=== PATIENT | male | born 1940 | race Caucasian/White ===

== ENCOUNTER → 2018-09-19 | Outpatient (REF) | payer OTHER ==
[2018-09-19 13:59] LABS: APPEARANCE, URINE CLEAR (CLEAR); BACTERIA, URINE AUTO NEGATIVE (NEGATIVE); BILIRUBIN, URINE AUTO NEGATIVE (NEGATIVE); BLOOD, URINE BLOOD NEGATIVE (NEGATIVE); CALCIUM OXALATE CRYSTALS MODERATE; COLOR, URINE YELLOW (YELLOW); GLUCOSE, URINE (UA) AUTO NEGATIVE (NEGATIVE); KETONE, URINE AUTO NEGATIVE (NEGATIVE); LEUKOCYTE ESTERASE, URINE AUTO NEGATIVE (NEGATIVE); NITRITE, URINE AUTO NEGATIVE (NEGATIVE); PROTEIN, URINE AUTO NEGATIVE (NEGATIVE); RBC, URINE AUTO 3 /HPF (0-3); SPECIFIC GRAVITY URINE AUTO 1.016 (1.002-1.035); SQUAMOUS EPITHELIAL CELL UR AU 0 /HPF (0-6); WBC, URINE AUTO 6 /HPF (0-3)
== END ==
LOC: M SMT 13:19
DX: N40.1 Benign prostatic hyperplasia with lower urinary tract symptoms (principal)
CPT/HCPCS: 81001

== ENCOUNTER → 2018-10-29 | Outpatient (CLI) | payer OTHER ==
--- NOTE | 2018-10-29 11:46 | REP ---
Clinical: Incomplete bladder emptying. Technique: Single supine view of the abdomen and pelvis. Findings: Bowel gas pattern is nonspecific but fecal stasis and constipation cannot be excluded. Intrarenal calculi identified. The patient is status post cholecystectomy. Skeletal structures demonstrate degenerative changes. Impression: Fecal stasis and constipation. Bilateral nephroliths. Electronically Signed by Seb Dubon MD 10/29/2018 11:37 A
== END ==
LOC: M SMT 11:17
PROVIDERS: ATTEND Urology Pediatric Urology
DX: K59.8 Other specified functional intestinal disorders (principal); K59.00 Constipation, unspecified; N20.0 Calculus of kidney; R39.14 Feeling of incomplete bladder emptying
CPT/HCPCS: 74018; G0463

== ENCOUNTER → 2018-12-11 | Outpatient (CLI) | payer MEDICARE ==
--- NOTE | 2018-12-11 11:33 | REP ---
RENAL AND BLADDER ULTRASOUND: Real-time sonographic evaluation of the kidneys performed and demonstrates both kidneys to be normal in size and echotexture, right kidney measuring 10.1 x 6.5 x 5.2 cm and left kidney 11.9 x 4.4 x 5.7 cm. There is no hydronephrosis bilaterally. There are two cysts in the upper right kidney, 1.7 cm and 1.3 cm in maximum diameter. I suspect a 5 mm calculus in the right lower pole. On the left, there appear to be several calculi, one in the upper pole 8 mm and two in the lower pole 6 mm in diameter. The prostate is enlarged measuring 7.6 x 5.5 x 6.4 cm. Urinary bladder is mildly distended with no gross mass or calculus. It measures 6.5 x 6.3 x 5.0 cm for a total volume of 134 mL. Post void residual is 126 mL which is 94%. There are bilateral ureteral jets in the urinary bladder with Doppler color evaluation. IMPRESSION: No hydronephrosis. Bilateral renal calculi. Two cysts are seen in the upper pole of the right kidney. Enlarged prostate. Significant post void residual in the urinary bladder. Electronically Signed by Daniel Rm MD 12/11/2018 05:22 P
== END ==
LOC: M RAD 09:50
PROVIDERS: ATTEND Urology Pediatric Urology
DX: N39.43 Post-void dribbling (principal); N20.0 Calculus of kidney; N28.1 Cyst of kidney, acquired; N40.1 Benign prostatic hyperplasia with lower urinary tract symptoms; R39.14 Feeling of incomplete bladder emptying

== ENCOUNTER → 2019-07-24 | Outpatient (CLI) | payer MEDICARE ==
--- NOTE | 2019-07-25 05:26 | REP ---
Clinical: Nephrolithiasis. Technique: Axial noncontrast images from the lung bases to the pubic symphysis with coronal and sagittal re-formations. Comparison: None. Findings: 4 mm hepatic hypodensity approaching the dome likely represent small cysts. Evidence of prior cholecystectomy. Spleen, pancreas, and bilateral adrenal glands are normal. Kidneys demonstrate multiple nonobstructing intrarenal calculi measuring up to approximately 2.5 mm in the right kidney and 4 mm in the left kidney along with hypodensities which may reflect small renal cysts. Mild chronic bilateral perinephric stranding is also appreciated without evidence for hydronephrosis or obstructing ureteral calculi. The bladder is grossly unremarkable. The prostate gland is enlarged and measures approximately 6.3 cm maximal diameter. No ascites. No free air. Atherosclerotic changes to the aorta without aneurysm. Musculoskeletal structures demonstrate age-related changes without focal osseous abnormality. Lung bases demonstrate chronic interstitial changes. Impression: 1. Bilateral nephrolithiasis and possible renovascular calcifications without hydronephrosis. 2. Enlarged prostate gland measuring 6.3 cm diameter. 3. Single hepatic and bilateral renal hypodensities likely representing cysts which cannot be further characterized based on current examination. Consider ultrasound evaluation if necessary. Electronically Signed by Seb Dubon MD 07/25/2019 05:18 A
== END ==
LOC: M RAD 13:24
PROVIDERS: ATTEND Nurse Practitioner Family
DX: N20.0 Calculus of kidney (principal); N40.0 Benign prostatic hyperplasia without lower urinary tract symptoms; K76.89 Other specified diseases of liver; N28.89 Other specified disorders of kidney and ureter; I70.0 Atherosclerosis of aorta

== ENCOUNTER → 2020-07-28 | Outpatient (CLI) | payer MEDICARE ==
--- NOTE | 2020-08-04 14:14 | REPPI ---
KUB: SINGLE VIEW HISTORY: Kidney stones. COMPARISON: CT study 07/24/2019. FINDINGS: There are clips in the right upper quadrant. Bowel gas pattern shows moderate stool. There are multiple calcifications projecting over the kidneys bilaterally consistent with multiple intrarenal nephrolithiasis. Similar pattern was observed on CT. The calcifications measure up to 6 mm in size. No bladder calculus is appreciated. Psoas margins are symmetric. IMPRESSION: * Multiple bilateral intrarenal nephrolithiasis. * Moderate colonic stool. * Clips in the right upper quadrant. MTDD
== END ==
LOC: M PLAIMG 11:24
PROVIDERS: ATTEND Nurse Practitioner Family
DX: N20.0 Calculus of kidney (principal)
CPT/HCPCS: 51798; 74018; G0463

== ENCOUNTER → 2020-08-18 | Outpatient (CLI) | payer MEDICARE ==
--- NOTE | 2020-08-18 14:43 | REP ---
INDICATION: BILATERAL KIDNEY STONES. COMPARISON: 07/24/2019 TECHNIQUE: Noncontrast helical CT scanning of the abdomen and pelvis FINDINGS: The lung bases are clear and unchanged. The liver, spleen, pancreas, adrenal glands, and kidneys are unchanged. Note is again made of a small hepatic cyst and a small right renal cyst. There is bilateral nephrolithiasis status quo. There is no obstructive phenomena. Limited evaluation of the abdominal aorta and para-aortic regions show no gross abnormalities or significant changes from the prior exam. There is no free fluid or free air. There is extensive descending colon and sigmoid colon diverticulosis. 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 Bone window technique throughout the examination shows the osseous structures to be stable and intact. Spinal, hip, and sacroiliac joint degenerative changes are noted status quo IMPRESSION: 1. Bilateral nephrolithiasis without obstructive phenomena unchanged. 2. Prostatomegaly and corpora amylacea unchanged. 3. Hepatic and right renal cyst unchanged. 4. No evidence of acute intra-abdominal or intrapelvic disease. <Electronically signed by Michael Santiago > 08/18/20 [id number]
== END ==
LOC: M RAD 14:02
PROVIDERS: ATTEND Nurse Practitioner Family
DX: N20.0 Calculus of kidney (principal); N28.1 Cyst of kidney, acquired; N40.0 Benign prostatic hyperplasia without lower urinary tract symptoms

== ENCOUNTER → 2021-02-19 | Outpatient (REF) | payer MEDICARE ==
[2021-02-19 14:07] LABS: APPEARANCE, URINE CLEAR (CLEAR); BACTERIA, URINE AUTO NEGATIVE (NEGATIVE); BILIRUBIN, URINE AUTO NEGATIVE (NEGATIVE); BLOOD, URINE BLOOD NEGATIVE (NEGATIVE); CALCIUM OXALATE CRYSTALS SMALL; COLOR, URINE YELLOW (YELLOW); GLUCOSE, URINE (UA) AUTO NEGATIVE (NEGATIVE); KETONE, URINE AUTO NEGATIVE (NEGATIVE); LEUKOCYTE ESTERASE, URINE AUTO NEGATIVE (NEGATIVE); MUCUS, URINE SMALL (NEGATIVE); NITRITE, URINE AUTO NEGATIVE (NEGATIVE); PROTEIN, URINE AUTO NEGATIVE (NEGATIVE); RBC, URINE AUTO 4 /HPF (0-3); SPECIFIC GRAVITY URINE AUTO 1.014 (1.002-1.035); SQUAMOUS EPITHELIAL CELL UR AU 0 /HPF (0-6); WBC, URINE AUTO 5 /HPF (0-3)
== END ==
LOC: M SMT 13:34
PROVIDERS: ATTEND Nurse Practitioner Family
DX: R30.0 Dysuria (principal)

== ENCOUNTER → 2021-04-16 | Outpatient (CLI) | payer MEDICARE ==
[~2021-04-16] MED LIST: AMAN100T PO; AMBI10TA PO; ASPI325T54 PO; BACL10TA2 PO; FLOM0.4C39 PO; GABA-282 PO; GLAT40IN SC; METO1TAB32 PO; METO1TAB7 PO; SIMV40TA20 PO
== END ==
LOC: M LABSMTC 09:43
PROVIDERS: ATTEND Anesthesiology
DX: Z01.812 Encounter for preprocedural laboratory examination (principal); Z20.822 Contact with and (suspected) exposure to COVID-19

== ENCOUNTER 2021-04-21 08:39 | Day surgery (SDC) | payer MEDICARE ==
[~2021-04-21] VITALS: Ht 170.2 cm; Wt 80.9 kg
[~2021-04-21 08:39] MED LIST changes: +LIDOCAINE 1% MDV 20ML VIAL SQ PRN; +LR 1,000 ML IV ONE; +ceFAZolin SOD 2 GM in IV 1 EA IV ONE
[2021-04-21] MEDS ORDERED: fentaNYL 100 MCG/2 ML INJECTION (J3010) As Ordered ONE ×2 (09:41→12:50)
[2021-04-21] MEDS ORDERED: ONDANSETRON 4MG/2ML VIAL As Ordered ONE ×2 (09:41→12:52)
[2021-04-21] MEDS ORDERED: LIDOCAINE 2% 100MG/5ML SDV (FOR ANES.) As Ordered ONE ×2 (09:41→12:52)
[2021-04-21] MEDS ORDERED: propofoL 200 MG/20 ML VIAL As Ordered ONE ×2 (09:41→12:52)
[2021-04-21] MEDS ORDERED: CONRAY-60 60% 50ML VIAL (Q9961) As Ordered ONE (10:58)
[2021-04-21] MEDS ORDERED: hydrALAZINE 20MG/ML 1ML VIAL (J0360 PER 20MG) As Ordered ONE (13:25)
[2021-04-21] MEDS: hydrALAZINE 20MG/ML 1ML VIAL (J0360 PER 20MG) IV PRN ×3 (13:30→13:50)
[2021-04-21] MEDS ORDERED: oxyCODONE 5MG TAB PO PRN (13:45)
[2021-04-21] MEDS ORDERED: fentaNYL 100 MCG/2 ML INJECTION (J3010) IV PRN (13:45)
[2021-04-21] MEDS ORDERED: LR 1,000 ML IV SCH (13:45)
[2021-04-21] MEDS ORDERED: ONDANSETRON 4MG/2ML VIAL IV PRN (13:45)
[2021-04-21 13:50] VITALS: BP 179/102
[2021-04-21] MEDS ORDERED: ACETAMINOPHEN TAB 650MG DOSE (2X325MG) PO PRN (14:05)
[2021-04-21 14:30] VITALS: BP 151/86
--- NOTE | 2021-04-21 16:21 | RO ---
OPERATIVE NOTE DATE OF OPERATION: 04/21/2021 PREOPERATIVE DIAGNOSIS: Bladder stones. POSTOPERATIVE DIAGNOSIS: Bladder stones. PROCEDURE: Cystoscopy, removal of bladder stones. SURGEON: Dr. Amos Woodson WILDLIFE REMOVAL SPECIALIST: None. ANESTHESIA: General. OPERATIVE INDICATIONS: This is an 81-year-old male who was found to have two bladder stones on office cystoscopy with each one measuring around 1-1.5 cm in size. He was brought to the operating room today for treatment. DESCRIPTION OF PROCEDURE: The patient was brought to the operating room and general anesthesia induced. Prophylactic antibiotics were infused. He was placed in the dorsal lithotomy position and prepped and draped in the usual sterile fashion. At this point, a resectoscope was inserted into the urethral meatus and advanced to the bladder using a visual obturator. At this point, the bladder was examined, and only two stones were seen. Both stones were small enough where I was able to drain them out of the bladder through the scope. While doing this, it did cause a little bit of bleeding in the prostate. I then utilized the Bugbee to cauterize the prostate until there was good hemostasis. Once satisfied with hemostasis, the bladder was emptied of all fluids, and this marked the conclusion of the procedure. Patient was then taken out of the dorsal lithotomy position, awakened form anesthesia, and transported to the recovery room in stable condition. ESTIMATED BLOOD LOSS: 10 mL. COMPLICATIONS: None. SPECIMENS: Bladder stones. PLAN: The patient will followup in urology clinic in a few weeks for a postoperative visit.
[2021-05-01 09:10] LABS: CA Hydro Phos 40 % (.); CA Oxalate Dihy 50 % (.); Ca Ox Monohydrate 10 % (.); Size 7x8 mm (.)
== END 2021-04-21 14:39 | disposition home or self-care (01) ==
LOC: M SDC 08:39
PROVIDERS: ATTEND Urology
DX: N21.0 Calculus in bladder (principal); N99.71 Accidental puncture and laceration of a genitourinary system organ or structure during a genitourinary system procedure; I10 Essential (primary) hypertension; E78.00 Pure hypercholesterolemia, unspecified; K21.9 Gastro-esophageal reflux disease without esophagitis; G35 Multiple sclerosis; N40.0 Benign prostatic hyperplasia without lower urinary tract symptoms; R73.01 Impaired fasting glucose; Z92.3 Personal history of irradiation; Z87.442 Personal history of urinary calculi; Z85.828 Personal history of other malignant neoplasm of skin; Z88.8 Allergy status to other drugs, medicaments and biological substances; Z79.899 Other long term (current) drug therapy; Z79.82 Long term (current) use of aspirin
CPT/HCPCS: 52310; 82365; 88300; J0360; J0690; J2405; J3010

== ENCOUNTER 2021-09-30 14:10 | Emergency (ER) | payer MEDICARE ==
[~2021-09-30] VITALS: Ht 170.2 cm; Wt 81.5 kg
[~2021-09-30 14:10] MED LIST changes: -LIDOCAINE 1% MDV 20ML VIAL SQ PRN; -LR 1,000 ML IV ONE; -ceFAZolin SOD 2 GM in IV 1 EA IV ONE
[2021-09-30 14:11] VITALS: BP 176/89
--- OUTSIDE RECORDS SUMMARY | 2021-09-30 14:17 | CCD ---
Author Author [facility] Organization [facility] Address Unknown Phone Unavailable Care Team Providers Care Nursing Instructor Name Role Phone Dante Medina MD Unavailable Unavailable CarolDante lopez MD Unavailable Unavailable CarolDante lopez MD Unavailable Unavailable CarolDante lopez MD Unavailable Unavailable CarolDante lopez MD Unavailable Unavailable CarolDante lopez MD Unavailable Unavailable CarolDante lopez MD Unavailable Unavailable CarolDante lopez MD Unavailable Unavailable CarolDante lopez MD Unavailable Unavailable CarolDante lopez MD Unavailable Unavailable CarolDante lopez MD Unavailable Unavailable CarolDante lopez MD Unavailable Unavailable CarolDante lopez MD Unavailable Unavailable CarolDante lopez MD Unavailable Unavailable CarolDante lopez MD Unavailable Unavailable CarolDante lopez MD Unavailable Unavailable CarolDante lopez MD Unavailable Unavailable CarolDante lopez MD Unavailable Unavailable CarolDante lopez MD Unavailable Unavailable CarolDante lopez MD Unavailable Unavailable CarolDante lopez MD Unavailable Unavailable CarolDante lopez MD Unavailable Unavailable CarolDante lopez MD Unavailable Unavailable CarolDante lopez MD Unavailable Unavailable CarolDante lopez MD Unavailable Unavailable CarolDante lopez MD Unavailable Unavailable Carol, R Jesús MD Unavailable Unavailable Carol, R Jesús MD Unavailable Unavailable Carol, R Jesús MD Unavailable Unavailable Carol, R Jesús MD Unavailable Unavailable Carol, R Jesús MD Unavailable Unavailable Carol, R Jesús MD Unavailable Unavailable Carol, R Jesús MD Unavailable Unavailable Carol, R Jesús MD Unavailable Unavailable Carol, R Jesús MD Unavailable Unavailable Carol, R Jesús MD Unavailable Unavailable Carol, R Jesús MD Unavailable Unavailable Carol, R Jesús MD Unavailable Unavailable Carol, R Jesús MD Unavailable Unavailable Carol, R Jesús MD Unavailable Unavailable Carol, R Jesús MD Unavailable Unavailable Carol, R Jesús MD Unavailable Unavailable Carol, R Jesús MD Unavailable Unavailable Carol, R Jesús MD Unavailable Unavailable Carol, R Jesús MD Unavailable Unavailable Carol, R Jesús MD Unavailable Unavailable Carol, R Jesús Unavailable Unavailable Carol, R Jesús MD Unavailable Unavailable Carol, R Jesús Unavailable Unavailable Carol, R Jesús MD Unavailable Unavailable Carol, R Jesús MD Unavailable Unavailable Carol, R Jesús MD Unavailable Unavailable Carol, R Jesús MD Unavailable Unavailable Carol, R Jesús MD Unavailable Unavailable Carol, R Jesús MD Unavailable Unavailable Carol, R Jesús MD Unavailable Unavailable Carol, R Jesús MD Unavailable Unavailable Carol, R Jesús MD Unavailable Unavailable Carol, R Jesús MD Unavailable Unavailable Carol, R Jesús MD Unavailable Unavailable Carol, R Jesús Unavailable Unavailable Carol, R Jesús MD Unavailable Unavailable Carol, R Jesús MD Unavailable Unavailable Carol, R Jesús MD Unavailable Unavailable Carol, R Jesús MD Unavailable Unavailable Carol, R Jesús MD Unavailable Unavailable Carol, R Jesús MD Unavailable Unavailable Carol, R Jesús Unavailable Unavailable Carol, R Jesús MD Unavailable Unavailable Carol, R Jesús MD Unavailable Unavailable Carol, R Jesús MD Unavailable Unavailable Carol, R Jesús MD Unavailable Unavailable Carol, R Jesús MD Unavailable Unavailable Carol, R Jesús MD Unavailable Unavailable Carol, R Jesús MD Unavailable Unavailable Carol, R Jesús MD Unavailable Unavailable Carol, R Jesús MD Unavailable Unavailable CaorlDante lopez MD Unavailable Unavailable CarolDante MD Unavailable Unavailable Hadian, Abel Unavailable Unavailable Hadian, Abel Unavailable Unavailable Hadian, Abel Unavailable Unavailable Hadian, Abel Unavailable Unavailable Hadian, Abel Unavailable Unavailable Hadian, Abel Unavailable Unavailable Hadian, Abel Unavailable Unavailable Hadian, Abel Unavailable Unavailable Hadian, Abel Unavailable Unavailable Hadian, Abel Unavailable Unavailable Hadian, Abel Unavailable Unavailable Hadian, Abel Unavailable Unavailable Hadian, Abel Unavailable Unavailable Hadian, Abel Unavailable Unavailable Hadian, Abel Unavailable Unavailable Hadian, Abel Unavailable Unavailable Hadian, Abel Unavailable Unavailable Hadian, Abel Unavailable Unavailable Hadian, Abel Unavailable Unavailable Hadian, Abel Unavailable Unavailable Hadian, Abel Unavailable Unavailable Hadian, Abel Unavailable Unavailable Hadian, Abel Unavailable Unavailable Hadian, Abel Unavailable Unavailable Hadian, Abel Unavailable Unavailable Hadian, Abel Unavailable Unavailable Hadian, Abel Unavailable Unavailable Hadian, Abel Unavailable Unavailable Hadian, Abel Unavailable Unavailable Hadian, Abel Unavailable Unavailable Hadian, Abel Unavailable Unavailable Hadian, Abel Unavailable Unavailable Hadian, Abel Unavailable Unavailable Hadian, Abel Unavailable Unavailable Hadian, Abel Unavailable Unavailable Hadian, Abel Unavailable Unavailable Hadian, Abel Unavailable Unavailable Hadian, Abel Unavailable Unavailable Hadian, Abel Unavailable Unavailable Hadian, Abel Unavailable Unavailable Hadian, Abel Unavailable Unavailable Hadian, Abel Unavailable Unavailable Daniel Man MD Unavailable Unavailable Daniel Man MD Unavailable Unavailable Daniel Man MD Unavailable Unavailable Daniel Man MD Unavailable Unavailable Daniel Man MD Unavailable Unavailable Daniel Man MD Unavailable Unavailable Daniel Man MD Unavailable Unavailable Daniel Man MD Unavailable Unavailable Daniel Man MD Unavailable Unavailable Daniel Man MD Unavailable Unavailable Daniel Man MD Unavailable Unavailable Daniel Man MD Unavailable Unavailable Daniel aMn MD Unavailable Unavailable Daniel Man MD Unavailable Unavailable Laura GENTILE MD Unavailable Unavailable Laura GENTILE MD Unavailable Unavailable Laura GENTILE MD Unavailable Unavailable Laura GENTILE MD Unavailable Unavailable Laura GENTILE MD Unavailable Unavailable Laura GENTILE MD Unavailable Unavailable Laura GENTILE MD Unavailable Unavailable KRUPA, L AMOS MD Unavailable Unavailable KRUPA, L AMOS MD Unavailable Unavailable KRUPA, L AMOS MD Unavailable Unavailable KRUPA, L AMOS MD Unavailable Unavailable KRUPA, L AMOS MD Unavailable Unavailable KRUPA, L AMOS MD Unavailable Unavailable KRUPA, L AMOS MD Unavailable Unavailable KRUPA, L AMOS MD Unavailable Unavailable KRUPA, L AMOS MD Unavailable Unavailable KRUPA, L AMOS MD Unavailable Unavailable KRUPA, L AMOS MD Unavailable Unavailable KRUPA, L AMOS MD Unavailable Unavailable KRUPA, L AMOS MD Unavailable Unavailable KRUPA, L AMOS MD Unavailable Unavailable KRUPA, L AMOS MD Unavailable Unavailable KRUPA, L AMOS MD Unavailable Unavailable KRUPA, L AMOS MD Unavailable Unavailable KRUPA, L AMOS MD Unavailable Unavailable KRUPA, L AMOS MD Unavailable Unavailable KRUPA, L AMOS MD Unavailable Unavailable KRUPA, L AMOS MD Unavailable Unavailable KRUPA, L AMOS MD Unavailable Unavailable KRUPA, L AMOS MD Unavailable Unavailable KRUPA, L AMOS MD Unavailable Unavailable KRUPA, L AMOS MD Unavailable Unavailable KRUPA, L AMOS MD Unavailable Unavailable KRUPA, L AMOS MD Unavailable Unavailable KRUPA, L AMOS MD Unavailable Unavailable KRUPA, L AMOS MD Unavailable Unavailable KRUPA, L AMOS MD Unavailable Unavailable KRUPA, L AMOS MD Unavailable Unavailable KRUPA, L AMOS MD Unavailable Unavailable KRUPA, L AMOS MD Unavailable Unavailable KRUPA, L AMOS MD Unavailable Unavailable Re-disclosure Warning The records that you are about to access may contain information from federally-assisted alcohol or drug abuse programs. If such information is present, then the following federally mandated warning applies: This information has been disclosed to you from records protected by federal confidentiality rules (42 CFR part 2). The federal rules prohibit you from making any further disclosure of this information unless further disclosure is expressly permitted by the written consent of the person to whom it pertains or as otherwise permitted by 42 CFR part 2. A general authorization for the release of medical or other information is NOT sufficient for this purpose. The Federal rules restrict any use of the information to criminally investigate or prosecute any alcohol or drug abuse patient.The records that you are about to access may contain highly sensitive health information, the redisclosure of which is protected by Article 27-F of the [place] State Public Health law. If you continue you may have access to information: Regarding HIV / AIDS; Provided by facilities licensed or operated by the [facility] Office of Mental Health; or Provided by the [facility] Office for People With Developmental Disabilities. If such information is present, then the following [facility] mandated warning applies: This information has been disclosed to you from confidential records which are protected by state law. State law prohibits you from making any further disclosure of this information without the specific written consent of the person to whom it pertains, or as otherwise permitted by law. Any unauthorized further disclosure in violation of state law may result in a fine or fci sentence or both. A general authorization for the release of medical or other information is NOT sufficient authorization for further disc losure. Allergies and Adverse Reactions Type Description Substance Reaction Status Data Source(s ) Food allergy No Known Food Allergies No Known Food Allergies [facility] Drug allergy lisinopril Lisinopril cough MO [facility] Family History Family Member Name Family Member Gender Family Member Status Date o f Status Description Data Source(s) Unknown Condition [facility] Unknown Condition [facility] Unknown Condition [facility] Unknown Condition [facility] Unknown Condition [facility] Unknown Condition [facility] Unknown Condition [facility] Unknown Condition [facility] Unknown Condition [facility] Unknown Condition [facility] Unknown Condition [facility] Unknown Condition [facility] Unknown Condition [facility] Unknown Condition [facility] Unknown Condition [facility] Unknown Condition [facility] Unknown Condition [facility] Unknown Condition [facility] Unknown Unknown Problem [facility] ([employer]) Encounters Encounter Providers Location Date Indications Data Source(s ) Outpatient Attender: Jesús Medina MD 09/28/2021 01:43: 00 PM EST 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 Outpatient Attender: Jesús Medina MDReferrer: Jesús Medina MD 06/21/2021 10:09:00 AM EDT - 06/21/2021 11:15:00 AM EDT [facility] Outpatient Attender: Jesús Medina MD 06/16/2021 10:47:00 AM EDT [facility] Outpatient [address], [facility] [address] 05/05/2021 12:00:00 AM EDT [facility]CW1 [facility] Unknown [address] [address] 04/19/2021 12:00:00 AM EDT [facility]CW1 [facility]) Outpatient Attender: AMOS GENTILE MD 04/13/2021 11 :38:00 AM EDT N21.0,Z01.818,N39.0 [facility] N21.0,Z01.818,N39.0 Outpatient Attender: AMOS GENTILE MD 04/01/2021 11 :01:00 AM EDT N21.0,Z01.818 [facility] N21.0,Z01.818 Outpatient Attender: Jesús Medina MDReferrer: Jesús Medina MD 04/01/2021 09:58:00 AM EDT - 04/01/2021 10:52:00 AM EDT [facility] (Cyst[facility]) Urology [address] [place] [address] 03/15/2021 12:00:00 AM EDT eCW1 ([facility]) Unknown [address], [facility] [address] 02/22/2021 12:00:00 AM EDT eCW1 ([facility]) Outpatient [address] [facility] [address] 02/15/2021 12:00:00 AM EDT eCW1 ([facility]) [place] [address] [address] 01/18/2021 12:00:00 AM EDT eCW1 ([facility]) Outpatient Attender: Jesús Medina MDReferrer: Jesús Medina MD 11/30/2020 10:14:00 AM EST - 11/30/2020 10:54:00 AM EST [facility] Outpatient Attender: Channing Man MD 07:26:00 AM EST - 10/07/2020 11:40:00 AM EST R19.5/COLONOSCOPY [id number] [facility] l R19.5/COLONOSCOPY [id number] Patient discharged. Outpatient Attender: Channing Man MDReferrer: Jesús Median MD 10/02/2020 09:14:00 AM EST - 10/02/2020 09:28:00 AM EST [facility] Outpatient Attender: Jesús Medina MD 09/29/2020 10:53:00 AM EST I10,Z01.818 [facility] I10,Z01.818 Outpatient Attender: Jesús Medina MDReferrer: Jesús Medina MD 09/29/2020 10:12:00 AM EST - 09/29/2020 10:51:00 AM EST [facility] Outpatient Attender: Channing Man MDReferrer: Jesús Medina MD 09/02/2020 09:16:00 AM EST [facility] Outpatient [address] [address] 09/01/2020 12:00:00 AM EST eCW1 ([facility]) [place] [address] [address] 08/11/2020 12:00:00 AM EDT eCW1 ([facility]) [place] [address] [address] 08/05/2020 12:00:00 AM EDT eCW1 ([facility]) Immunizations Vaccine Date Status Description Data Source(s) COVID-19 Moderna 01/13/2021 12:00:00 AM EDT completed [facility] COVID-19 VACCINE Moderna 01/13/2021 12:00:00 AM EDT completed [facility] Vaccine Series Complete: YESThis Data wa s Submitted to [facility] Via [facility]. COVID-19 VACCINE, MRNA-1273, LNP-S (MODERNA)/PF 01/13/2021 1 2:00:00 AM EDT completed [facility] COVID-19 Moderna 12/12/2020 12:00:00 AM EST completed [facility] COVID-19 VACCINE Moderna 12/12/2020 12:00:00 AM EST completed [facility] Vaccine Series Complete: NOThis Data was Submitted to [facility] Via [employer]. COVID-19 VACCINE, MRNA-1273, LNP-S (MODERNA)/PF 12/12/2020 1 2:00:00 AM EST completed [facility] IIV3. This is one of two codes replacing CVX 15, which is being retired. 08/01/2020 12:00:00 AM EDT completed [facility] IIV3. This is one of two codes replacing CVX 15, which is being retired. 08/01/2020 12:00:00 AM EDT completed influenza vaccine, inactivated [facility] IIV3. This is one of two codes replacing CVX 15, which is being retired. 08/01/2020 12:00:00 AM EDT completed influenza vaccine, inactivated [facility] IIV3. This is one of two codes replacing CVX 15, which is being retired. 08/01/2020 12:00:00 AM EDT completed influenza vaccine, inactivated [facility] IIV3. This is one of two codes replacing CVX 15, which is being retired. 08/01/2020 12:00:00 AM EDT completed influenza vaccine, inactivated [facility] IIV3. This is one of two codes replacing CVX 15, which is being retired. 08/01/2020 12:00:00 AM EDT completed influenza vaccine, inactivated [facility] Medications Medication Brand Name Start Date Product Form Dose Route Admi nistrative Instructions Pharmacy Instructions Status Indications Reaction Description Data Source(s) doxycycline hyclate 100 MG Oral Capsule Doxycycline Hyclate Doxycycline Hyclate 05/04/2021 01:56:41 PM EDT 200 MG [facility] 24 HR metoprolol succinate 50 MG Extende d Release Oral Tablet Metoprolol Succinate Metoprolol Succinate 02/23/2021 11:44:34 AM EDT 75 MG [facility] Zolpidem tartrate 5 MG Oral Tablet Zolpidem 10/06/2020 08:37:23 AM ES T 5 MG [facility] Simvastatin 40 MG Oral Tablet Simvastatin (Zocor) 40 m g tablet Simvastatin (Zocor) 40 mg tablet 10/06/2020 08:37:23 AM EST 40 MG [facility] Simvastatin 40 MG Oral Tablet Simvastatin (Zocor) 40 m g tablet Simvastatin (Zocor) 40 mg tablet 10/06/2020 08:37:23 AM EST 40 MG [facility] Zolpidem tartrate 5 MG Oral Tablet Zolpidem 10/06/2020 08:37:23 AM ES T 5 MG [facility] 24 HR metoprolol succinate 50 MG Extende d Release Oral Tablet Metoprolol Succinate Metoprolol Succinate 10/06/2020 08:37:23 AM EST 75 MG [facility] 24 HR metoprolol succinate 50 MG Extende d Release Oral Tablet Metoprolol Succinate Metoprolol Succinate 10/06/2020 08:37:23 AM EST 75 MG [facility] Simvastatin 40 MG Oral Tablet Simvastatin (Zocor) 40 m g tablet Simvastatin (Zocor) 40 mg tablet 10/06/2020 08:37:23 AM EST 40 MG [facility] Zolpidem tartrate 5 MG Oral Tablet Zolpidem 10/06/2020 08:37:23 AM ES T 5 MG [facility] 24 HR metoprolol succinate 50 MG Extende d Release Oral Tablet Metoprolol Succinate Metoprolol Succinate 10/06/2020 08:37:23 AM EST 75 MG [facility] Simvastatin 40 MG Oral Tablet Simvastatin (Zocor) 40 m g tablet Simvastatin (Zocor) 40 mg tablet 06/22/2020 01:52:39 PM EDT 40 MG co [facility] Simvastatin 40 MG Oral Tablet Simvastatin (Zocor) 40 m g tablet Simvastatin (Zocor) 40 mg tablet 06/22/2020 01:52:39 PM EDT 40 MG co [facility] Simvastatin 40 MG Oral Tablet Simvastatin (Zocor) 40 m g tablet Simvastatin (Zocor) 40 mg tablet 06/22/2020 01:52:39 PM EDT 40 MG co mpleted [facility] 24 HR metoprolol succinate 50 MG Extende d Release Oral Tablet Metoprolol Succinate Metoprolol Succinate 06/22/2020 01:52:35 PM EDT 75 MG completed [facility] 24 HR metoprolol succinate 50 MG Extende d Release Oral Tablet Metoprolol Succinate Metoprolol Succinate 06/22/2020 01:52:35 PM EDT 75 MG completed [facility] 24 HR metoprolol succinate 50 MG Extende d Release Oral Tablet Metoprolol Succinate Metoprolol Succinate 06/22/2020 01:52:35 PM EDT 75 MG completed [facility] modafinil 100 MG Oral Tablet Modafinil Modafinil 05/18/2017 11:2 1:00 AM EDT 100 MG completed [facility] modafinil 100 MG Oral Tablet Modafinil Modafinil 05/18/2017 11:2 1:00 AM EDT 100 MG completed [facility] modafinil 100 MG Oral Tablet Modafinil Modafinil 05/18/2017 11:2 1:00 AM EDT 100 MG completed [facility] modafinil 100 MG Oral Tablet Modafinil Modafinil 05/18/2017 11:2 1:00 AM EDT 100 MG completed [facility] modafinil 100 MG Oral Tablet Modafinil Modafinil 05/18/2017 11:2 1:00 AM EDT 100 MG completed [facility] Zolpidem tartrate 5 MG Oral Tablet Zolpidem 06/11/2012 10:51:00 AM ED T 5 MG completed [facility] Zolpidem tartrate 5 MG Oral Tablet Zolpidem 06/11/2012 10:51:00 AM ED T 5 MG completed [facility] Zolpidem tartrate 5 MG Oral Tablet Zolpidem 06/11/2012 10:51:00 AM ED T 5 MG completed [facility] Insurance Providers Payer name Policy type / Coverage type Policy ID Covered libertarian ID Covered libertarian's relationship to callaway Policy [place] Plan Information MOTHER JOSSY UNAVAILABLE Patient UNAVAILABLE AMER PROG TODAYS OPTIONS G [id number] Self [id number] OTHER B [id number] Self [id number] [place]GR[place] [id number] Self [id number] AMER PROG TODAYS OPTIONS G [id number] Self [id number] OTHER B [id number] Self [id number] OTHER B [id number] Self [id number] OTHER B [id number] Self [id number] WELLCARE [id number] WELLCARE [id number] ANSI-Medicare Part B [id number] ANSI-Medicare Part B [id number] ANSI-Medicare Part B [id number] ANSI-Medicare Part B [id number] ANSI-Medicare Part B [id number] ANSI-Medicare Part B [id number] [employer] Options Ppo Commercial [id number] Self [id number] [employer] PFFS Commercial [id number] Self [id number] TODAYS OPTIONS MCR [id number] Patient [id number] [employer] PROG VACAA [id number] S [id number] NON VA CARE [id number] S [id number] NON VA CARE [id number] S [id number] TODAYS OPTIONS MCR [id number] Patient [id number] Todays Options Ppo Commercial [id number] Self NON VA CARE [id number] S [id number] TODAYS OPTIONS O [id number] S [id number] TODAYS OPTIONS O UNAVAILABLE S [place] VAILABLE MEDICARE M [id number] S [id number] WELLCARE [id number] S [id number] WELLCARE [id number] SP [id number] WELLCARE [id number] SP [id number] WELLCARE [id number] SP [id number] WELLCARE [id number] SP [id number] TODAYS OPTIONS [id number] SP [id number] VETERANS CHOICE PROG VACAA [id number] S [id number] FILIPINO PROGRESSIVE MC [id number] S [id number] WELLCARE [id number] S [id number] ANSI-Medicare Part B [id number] Problems, Conditions, and Diagnoses Code Display Name Description Problem Type Effective Dates Data Source(s) N21.0 Calculus of bladder Bladder stones Problem 03/15/2021 1 2:00:00 AM EDT eCW1 ([facility]) R31.29 Microscopic hematuria Microscopic hematuria Problem 03/15/2021 12:00:00 AM EDT eCW1 ([facility]) N39.0 Urinary tract infectious disease UTI (urinary tract in fection) Problem 03/15/2021 12:00:00 AM EDT eCW1 ([facility]) Z01.818 Pre-procedure evaluation check Preop testing Problem 03/15/2021 12:00:00 AM EDT eCW1 ([facility]) Surgeries/Procedures Procedure Description Date Indications Data Source(s) uro PVR (Post Voiding Residual) Bladder Scan 12:00:00 AM EDT eCW1 ([facility]) Urine culture (procedure) 04/13/2021 12:00:00 AM EDT [facility] Plain chest X-ray (procedure) 04/01/2021 01:59:00 PM E DT [facility] 03/15/2021 12:00:00 AM EDT e CW1 ([facility]) Results ID Date Data Source [id number] 09/28/2021 02:55:00 PM EST [facility] [address] [place] [id number] [phone] NAME SEX PT STATUS ACCOUNT NUMBER DENISSE BISHOP REG REF [id number] ORDERING PHYSICIAN LOCATION MEDICAL RECORD NO. 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 TECHNIQUE: 4 views of the calvarium are provided. FINDINGS: The bony calvarium is intact. There are surgical clips along the right temporoparietal region and in the right neck and perimandibular soft tissues. No bony destructive lesion is seen. Orbital margins appear intact. Visualized paranasal sinuses are clear except for the right maxillary sinus which appears to have a air-fluid level within it. Study is otherwise unremarkable. IMPRESSION: Postoperative changes in the soft tissues o f right temporoparietal scalp and right neck soft tissues. No bony destructive lesion is seen. Air-fluid level apparent in the right maxillary sinus. Reported By Allen Chery MD on 09/28/21 [id number] Signed By Allen Chery MD on 09/28/21 660 Date Time CC: Allen Chery M.D.; Jesús Medina MD Techn: SHANELLE Trans Dt/Tm: Trans by: DT Prt Dt/Tm: [id number]: Total DLP = 0.00 mGy-cm Fluoroscopy Time (in secs): Name Value Range Interpretation Code Description Data Diana rce(s) Supporting Document(s) ID Date Data Source [id number] 09/28/2021 01:12:00 PM [facility] Patient Name: DENISSE BISHOP : 1940 Sex: M Pt Unit #: [id number] Location:[facility] Provider: Visit Date/Time: 09/28/21 Primary Insurance: [employer] MEDICARE Secondary Insurance: Self Pay Intake Vital Signs 09/28/21 13:16 Current Height 5 ft 6.5 in Current Weight 175 lb Weight Measurement Method Standing Scale BMI 27.8 BP 128/78 Blood Pressure Location Lt brachial Position Sitting Pulse 70 Pulse Strength Normal Pulse Source Pulse Oximeter Temp 97.0 F L Temp Source Tympanic Pulse Oximetry (%) 97 Oxygen Delivery Method room air Comment Skip Intake Visit Reasons: Ear Complaint Nurse Note: Pt had head congestion a week ago. Pt now has right ear pain x3 days. Pain can be sharp/shooting at times. Riveter Pneumatic Required: No Accompanied by: Self / Same as Patient Is patient in pain?: Yes Allergies No Known Food Allergies Allergy (Verified 04/01/21 10:35) lisinopril Adverse Reaction (Intermediate, Verified 11/30/20 17:51) cough Medications - Last Reconciled 09/28/21 by Jesús Medina M.D. amantadine HCl 100 mg PO BID aspirin 325 mg PO DAILY baclofen 10 mg PO BID cholecalciferol (vitamin D3) 1,000 units PO DAILY dimethyl fumarate 240 mg PO BID metoprolol succinate ER 75 mg (1.5 x 50 mg) PO DAILY simvastatin (Zocor) 40 mg PO HS tamsulosin 0.4 mg PO DAILY tramadol 50 mg PO BID PRN MDD 2 zolpidem 5 mg PO QHS PRN Vision Wearing glasses?: Yes Fall Risk History of falls: No Ambulatory Aid:: Crutches Cane or Walker Gait/Transferring:: Weak Medications:: Antihypertensives HIV Testing Offer - ages 13-64 HIV testing Offer: No Requirement for HIV testing offer been met?: Not in age range Do you need a note to return Do you need a note to return to daycare/school/sports/wor k: No Coronavirus Screening Screening Are you currently positive or on isolation for COVID ?: No Do you have any NEW signs of one or more of the following?: no symptoms Do you have NEW signs of at least two of the following?: no symptoms HPI Additional HPI HPI Details: Patient has a 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 He has had extensive surgery including total resection of his right ear. There are a couple of areas of skin excoriation and ulceration that have refused to heal. Patient has noticed increased pain in that area and came to the office for evaluation. His biggest concern is recurrence of the malignancy. The pain is described as sharp and shooting. He denied any fever or chills. There are no enlarged lymph nodes in the drainage area. There is no drainage out of the ear itself. [facility] Medical History Benign prostatic hypertrophy without urinary obstruction Cataract Fluctuating PSA Fuch's Endothelial Dystrophy History hip fracture History of mumps History of varicella Kidney stones Laceration of hand Lymphoma Multiple sclerosis Optic Neuropathy Recurrent Sinusitis Surgical History History of - surgery History of cholecystectomy History of cystoscopy (03/15/21) History of external ear surgery (11/18/15) History of hip surgery History of prostate surgery History of rectal fissure History of skin graft S/P cataract extraction and insertion of intraocular lens S/P TURP Family History Mother Lung cancer Father Lung cancer Brother Suicide Brother Kidney disease Brother No problems noted. Daughter No problems noted. Daughter No problems noted. Daughter No problems noted. Daughter No problems noted. Daughter No problems noted. Sister No problems noted. Sister No problems noted. Other Autoimmune disease Diabetes Social History Does the Patient have a Healthcare Proxy: Yes Does Patient have a DNR?: Yes Does Patient have a Living Will?: Yes Advance Directives on File or in chart?: Yes household members: spouse marital status: highest education level completed: some college, no degree service: Yes current occupational status: retired pets and animals: Yes leisure activities: fishing and other Hx Recent Travel (where): No well- balanced diet: daily caffeine: Yes (no reply) high-fat food intake: 0-1 times daily daily servings fruits/ve-1 daily servings of milk/calcium: 2-4 eating out: 1-3 times/week reads food labels: sometimes during the past year weight has: remained stable what type of physical activity do you participate in?: walking Smoking Status: Never smoker alcohol intake: never substance use type: does not use sha/sabianism: Voodoo special sha needs: No seatbelt use: always helmet use: No drive intox or ride w/ intox auto carrier driver: No water heater temp set < 120 deg: Yes working smoke detector in home: Yes fire extinguisher in home: Yes carbon monox detector in home: Yes firearms in home: Yes firearms unloaded and locked: Yes victim of physical abuse: No victim of emotional abuse: No Review of Systems Const All systems reviewed are unremarkable except as noted in HPI and below Exam HENMT Ears: EAC abnormal excessive cerumen on the left (Cleared using a curette), external ear abnormal (Erythema of the skin around the right ear opening) and other (Patient is status post right ear resection) Assessment Plan Assessment Plan (1) Ear Problem: Code(s): H93.90 - Unspecified disorder of ear, unspecified ear Plan: Patient came to the office for evaluation of pain around his right ear opening. A skull x-ray was obtained. The result did not indicate any bony destruction. Patient was notified of this result. He will be following up with his specialist for further care. Plan: Urgent evaluation of right-sided facial discomfort near the ear opening Orders: Orders Xray Skull complete Today C79.9 - Secondary malignant neoplasm of unspecified site Medications: New tramadol 50 mg PO BID PRN 10 tabs 0RF pain MDD 2 Additional Comments Additional Comments: This document was dictated using Benesight speech recognition software. A reasonable attempt to proofread has been made to minimize errors. Please call if you notice any errors or have any questions. Orders Follow Up: 12/27/21 (Hypertension) Coding Level of Care Code 83650 Est Pt Intermediate Comp Coding comments Coding Comments Additional info for the twist tester: Urgent evaluation of pain around the right ear opening where the patient has had surgery for basal cell cancer Exam Problem Focused Diagnoses Ear Problem H93.90 Additional Codes Intake - Is patient in pain?: Yes (1125F) <Electronically signed by Jesús Medina MD> 2055 Name Value Range Interpretation Code Description Data Diana rce(s) Supporting Document(s) ID Date Data Source [id number] 09/20/2021 11:14:00 AM EST [facility] Name Value Range Interpretation Code Description Data Diana rce(s) Supporting Document(s) Respiratory specimen severe acute respir atory syndrome coronavirus 2 (SARS-CoV-2) RNA Negative (qualifier value) [facility] This lab was ordered by [facility] and reported by . ID Date Data Source [id number] 09/21/2021 07:55:00 AM EST [facility] Name Value Range Interpretation Code Description Data Diana rce(s) Supporting Document(s) SARS-CoV-2 RNA INHOUSE Negative Normal (applies to non-n umeric results) [facility] THIS IS A STATE REPORTABLE COMMUNICABLE DISEASE. Testing was performed using the [employer] COVID-19 MDx Assay. This test has been authorized by FDA under an (Emergency Use Authorization) EUA for use by authorized laboratories for individuals who are suspected of COVID-19 by their healthcare provider. This test is only authorized for the duration of the declaration that circumstances exist justifying the authorization of emergency use of in vitro diagnostic tests for detection and/or diagnosis of SARS-CoV-2. Methodology: Endpoint RT-PCR. Fact sheets for this EUA assay can be found at the following links: Providers: https://www.fda.gov/media/306678/download Patients : https://www.fda.gov/media/977349/download Negative results do not preclude SARS-CoV-2 infection and should not be used as the sole basis for patient management decisions. Negative results must be combined with clinical observations,patient history, and epidemiological information. ID Date Data Source [id number] 06/21/2021 10:16:00 AM EDT [facility] Patient Name: DENISSE BISHOP : 1940 Sex: M Pt Unit #: [id number] Location:[facility] Provider: Visit Date/Time: 06/21/21 Primary Insurance: WELL[employer] MEDICARE Secondary Insurance: Self Pay Intake Vital Signs 06/21/21 10:14 Current Height 5 ft 6.5 in Current Weight 176 lb Weight Measurement Method Standing Scale BMI 27.9 BP 134/70 Blood Pressure Location Lt brachial Position Sitting Pulse 60 Pulse Strength Normal Pulse Source Pulse Oximeter Pulse Oximetry (%) 96 Oxygen Delivery Method room air Comment Skip Intake-Medicare Annual Visit Reasons: Annual Physical Nurse Note: Pt's here for his Medicare Annual Exam and regular Annual Exam. Pt states his legs gave out 1 month ago, was given Prednisone by [place] doctor. Pt's no longer taking Prednisone and no issues w/ legs since. Riveter Pneumatic Required: No Accompanied by: Self / Same as Patient Is patient in pain?: Yes (left ankle) Pain scale (1- 10): 5 Allergies No Known Food Allergies Allergy (Verified 04/01/21 10:35) lisinopril Adverse Reaction (Intermediate, Verified 11/30/20 17:51) cough Feel stressed/tense/nervous/anxious/difficulty sleeping: not at all Medications - Last Reconciled 06/21/21 by Jesús Medina M.D. amantadine HCl 100 mg PO BID aspirin 325 mg PO DAILY baclofen 10 mg PO BID cholecalciferol (vitamin D3) 1,000 units PO DAILY glatiramer (Copaxone) 40 mg subcut TIW metoprolol succinate ER 75 mg (1.5 x 50 mg) PO DAILY simvastatin (Zocor) 40 mg PO HS tamsulosin 0.4 mg PO DAILY zolpidem 5 mg PO QHS PRN Fall Risk History of falls: Yes Ambulatory Aid:: Crutches Cane or Walker Gait/Transferring:: Weak Medications:: Antihypertensives HIV testing Offer: No Requirement for HIV testing offer been met?: Not in age range SBIRT Annual Questionnaire Are you currently in recovery for alcohol or substance use?: No How many times in the past year have you had 5 or more drinks in a day?: None How many times in the past year have you used a recreational drug or used a prescription medication for nonmedical reasons?: None Coronavirus Screening Screening Are you currently positive or on isolation for COVID ?: No Do you have any NEW signs of one or more of the following?: no symptoms Do you have NEW signs of at least two of the following?: no symptoms PFSH Medical History Benign prostatic hypertrophy without urinary obstruction Cataract Fluctuating PSA Fuch's Endothelial Dystrophy History hip fracture History of mumps History of varicella Kidney stones Laceration of hand Lymphoma Multiple sclerosis Optic Neuropathy Recurrent Sinusitis Surgical History History of - surgery History of cholecystectomy History of cystoscopy (03/15/21) History of external ear surgery (11/18/15) History of hip surgery History of prostate surgery History of rectal fissure History of skin graft S/P cataract extraction and insertion of intraocular lens S/P TURP Family History Mother Lung cancer Father Lung cancer Brother Suicide Brother Kidney disease Brother No pr oblems noted. Daughter No problems noted. Daughter No problems noted. Daughter No problems noted. Daughter No problems noted. Daughter No problems noted. Sister No problems noted. Sister No problems noted. Other Autoimmune disease Diabetes Social History Does th e Patient have a Healthcare Proxy: Yes Does Patient have a DNR?: Yes Does Patient have a Living Will?: Yes Advance Directives on File or in chart?: Yes household members: spouse marital status: highest education level completed: some college, no degree service: Yes current occupational status: retired pets and animals: Yes leisure activities: fishing and other Hx Recent Travel (where): No well-balanced diet: daily caffeine: Yes (no reply) high-fat food intake: 0-1 times daily daily servings fruits/ve-1 daily servings of milk/calcium: 2-4 eating out: 1-3 times/week reads food labels: sometimes during the past year weight has: remained stable what type of physical activity do you participate in?: walking Smoking Status: Never smoker alcohol intake: never substance use type: does not use sah/sabianism: Voodoo special sha needs: No seatbelt use: always helmet use: No drive intox or ride w/ intox auto carrier driver: No water heater temp set < 120 deg: Yes working smoke detector in home: Yes fire extinguisher in home: Yes carbon monox detector in home: Yes firearms in home: Yes firearms unloaded and locked: Yes victim of physical abuse: No victim of emotional abuse: No Medicare Annual Wellness Type Of Examation Type of Exam: Subsequent Wellness Exam EKG EKG Performed: Yes (04/01/21) Medication list Medications amantadine HCl 100 mg PO BID aspirin 325 mg PO DAILY baclofen 10 mg PO BID cholecalciferol (vitamin D3) 1,000 units PO DAILY [Gabapentin 300 mg PO BID] glatiramer (Copaxone) 40 mg subcut TIW metoprolol succinate ER 75 mg (1.5 x 50 mg) PO DAILY simvastatin (Zocor) 40 mg PO HS tamsulosin 0.4 mg PO DAILY zolpidem 5 mg PO QHS PRN Allergies Allergies No Known Food Allergies Allergy (Verified 04/01/21 10:35) lisinopril Adverse Reaction (Intermediate, Verified 11/30/20 17:51) cough Current Diet Current diet: regular PHQ-2/9 Over the last 2 weeks, how often have you been bothered by any of the following problems? 1. Little interest or pleasure in doing things: not at all 2. Feeling down, depressed, or hopeless: not at all Total score: 0 Vision [place] [facility] - right eye: 20/25 [facility] - left eye: 20/25 [facility] Far - bilateral eyes: 20/25 [facility] Near - right eye: 20/70 [facility] Near - left eye: 20/70 [facility] near - bilateral eye: 20/70 Functional Assessment Bathing: Independent Dressing: Independent Toileting: Independent Transferring: Independent Continence: Independent Feeding: Independent Total Score: 6 Home Safety Home Safety: Reports Bathroom: Grab bars, Lighting: Adequate, [place]: No throw rugs and Stairs: Handrail available Hearing Hearing Left Ear: Normal Hearing Right Ear: Normal IADL Assessment Functional abilities: Up Go test, pt steady, Up Go test, within 30 sec, Pt independent w/phone,Pt independent w/transportation, Pt independent w/shopping, Pt independent w/housework, Pt independent w/meal preparation, Pt independent w/laundry, Pt independent w/medication and Pt independent w/finances Cognitive Evaluation Oriented to the date:: Yes Oriented to time:: Yes Oriented to place:: Yes Mood: grossly normal Affect: Normal Judgement: normal Needs caregiver for assistance: No Clock drawing: Yes Clock drawing with correct time: Yes 3 item recall: 3 Next Visit Return to Office:: At the end of 6 months HPI Additional HPI HPI Details: Patient with a history of high cholesterol, BPH, hypertension, MS and impaired fasting glucose came to the office for his annual evaluation as well as his Medicare annual wellness visit. He must of had a flareup of his MS a few days ago. He lost control of his legs. He [facility]. His condition improved. He has discontinued the prednisone. There has been no recurrence of weakness of his legs. Review of Systems Const Denies anorexia, Denies excessive sweating, Denies fatigue, Denies fever(s) and Denies headache(s) Eyes Denies blurry vision, Denies change in vision, Denies dry eyes, Denies irritation, Denies itchy eyesand Denies loss of vision ENT De nies dysphagia, Denies dizziness, Denies headache(s), Denies lip swelling, Denies nasal congestion, Denies nasal discharge, Denies disequilibrium, Denies sinus pain, Denies sore throat andDenies throat swelling Card Denies chest pain, Denies pedal edema, Denies lightheadedness, Denies palpitations and Denies dyspnea Resp Denies cough, Denies excessive phlegm production, Denies pain on inspiration, Denies dyspnea and Denies wheezing GI Denies abdominal pain, Denies change in bowel habits, Denies dysphagia, Denies early satiety, Deniesheartburn, Denies diarrhea, Denies nausea and Denies vomiting Denies difficulty urinating, Denies flank pain, Denies urinary frequency, Denies urinary incontinence and Denies urinary urgency Musc Denies back pain, Denies arthralgias, Denies limited range of motion, Denies muscle cramps and Reports muscle weakness (1 episode of leg muscle weakness) Skin/Breast Denies change in pigmentation, Denies nail changes, Denies rash and Denies unusual bruising N euro Denies dizziness, Denies headache(s), Denies loss of vision, Denies memory loss, Denies paresthesiasand Denies disequilibrium Psych Denies abnormal sleep pattern, Denies anxiety, Denies change in appetite, Denies depression, Denies irritability and Denies memory loss Endo Denies cold intolerance, Denies excessive sweating, Denies fatigue, Denies polyphagia, Denies polydipsia, Denies polyuria and Denies palpitations Miah/Lymph Denies easy bleeding, Denies easy bruising and Denies lymphadenopathy Aller/Immun Denies urticaria, Denies itchy eyes, Denies lip swelling, Denies seasonal rhinorrhea, Denies throat swelling and Denies wheezing Exam Const General: cooperative, healthy appearing, no acute distress, well developed and well groomed Nutritional Appearance: overweight Orientation: alert, awake and oriented x3 HENMT Head: normal to inspection, normocephalic and atraumatic Ears: hearing grossly normal bilaterally, TM's normal bilaterally, EAC's normal, no periauricular adenopathy and external ear abnormal other (Patient has his right ear resected because of cancer) Eyes General: appearance normal, both eyes and all related structures Periorbital: periorbital findings normal Eyelids: eyelids normal Conjunctivae: conjunctivae normal Sclera: sclerae normal Pupils: PERRL EOM: EOM intact bilaterally Direct ophthalmoscopy: normal light reflex Neck Neck: normal visu al inspection, no lymphadenopathy, supple and no JVD present Neck mass: No Thyroid: thyroid normal Carotids: normal carotid upstroke Resp Effort Inspection: normal respiratory effort Auscultation: rales (Bilateral lower lobe rales) Percussion: percussion normal Cardio Jugular venous pressure: no JVD Rate: regular rate Rhythm: regular rhythm Heart Sounds: S1 normal, S2 normal and murmur (Occasional end expiratory systolic murmur at the right upper sternal border) Pulses: normal peripheral pulses GI Inspection: Yes normal to inspection Palpation: soft, no hepatosplenomegaly, no aortic enlargement and nontender Percussion: normal to percussion Auscultation: normal bowel sounds General: No CVA tenderness Musc Cervical Spine: normal cervical lordosis Thoracic/Lumbar Spine: thoracic and lumbar spine normal to inspection and straight leg raise negative bilaterally Skin Rashes: no rashes Hair: normal Nails: normal Neuro General: patient alert, patient awake, patient oriented x3, gait normal and moves all extremities Cognition: normal cognition Speech: speech normal Gait: normal gait DTR's: Rt Patellar: 2+ and Lt Patellar: 2+ Extrem General: normal to inspection, capillary refill normal, no clubbing, cyanosis or edema and no muscleatrophy Psych Appearance: grossly normal and well kempt Mental Status: mental status grossly normal Speech and Movement: speech and movement normal Assessment Plan Assessment Plan (1) Encounter for annual health examination: Code(s): Z00.00 - Encounter for general adult medical examination without abnormal findings Plan: Annual visit today. Personal history was updated. Medication record was updated. Results of the annual blood work were discussed with the patient in detail. Comprehensive review of systems was done. Comprehensive examination was done. Depression questionnaire was reviewed. (2) Medicare annual wellness visit, subsequent: Code(s): Z00.00 - Encounter for general adult medical examination without abnormal findings Plan: Patient came for the annual wellness visit. Patient's medical and personal history was updated. I updated the list of patient's current medical providers. Medication regimen was also reviewed. Vitalsigns were recorded. Patient was subjected to the mini-cog test. There is no evidence of cognitive impairment. Health maintenance activity record was updated. Patient was provided with personalized advice regarding lifestyle measures. A printed personalized prevention plan was provided to the patient. Return appointment will be at the end of 6 months for a recheck. (3) Pure hypercholesterolemia: Status: Acute Onset Date: 11/03/14 Code(s): E78.00 - Pure hypercholesterolemia, unspecified SNOMED Code(s): 699934060 Category: Medical Plan: Results of the fasting lipid panel were discussed with the patient. The findings are satisfactory. He was promoted to continue with his lifestyle measures to control his cholesterol. (4) BPH w/o urinary obs/LUTS: Status: Acute Onset Date: 11/03/14 Code(s): N40.0 - Benign prostatic hyperplasia without lower urinary tract symptoms SNOMED Code(s): 112567681 Category: Medical Plan: Patient continues follow-up with his urologist for this problem. (5) Essential hypertension: Status: Acute Onset Date: 03/28/02 Code(s): I10 - Essential (primary) hypertension SNOMED Code(s): 84694259 Category: Medical Plan: Blood pressure is well controlled on the current regimen. Patient was advised to follow a low-salt diet. Additional time was spent with the patient discussing the hypertension plan of care. (6) Multiple sclerosis: Status: Acute Onset Date: 11/03/14 Code(s): G35 - Multiple sclerosis SNOMED Code(s): 88427680 Category: Medical Plan: Patient continues close follow-up with his neurologist in [place]. He had the one episode of leg muscle weakness. Plan: Patient came to the office for his annual/annual. Return will be at the end of 6 months. Additional Comments Additional Comments: Certain parts of this note may have been carried over from prior notes to maintain accuracy of the patient's pertinent medical history and continuity of care. The details were verified and edited asappropriate. This document was dictated using Benesight speech recognition software. A reasonable attempt to proofread has been made to minimize errors. Please call if you notice any errors or have any questions. Orders Instructions: DASH Eating Plan (GEN) Hypertension (GEN) Follow Up: 6 Months Coding Level of Care Code 66681 Est Pt Extended Comp Coding comments Coding Comments Additional info f or the twist tester: Annual evaluation as well as Medicare annual wellness visit for this patient with multiple medical problems Exam Comprehensive Diagnoses Encounter for annual health examination Z00.00 Medicare annual wellness visit, subsequent Z00.00 Pure hypercholesterolemia E78.00 BPH w/o urinary obs/LUTS N40.0 Essential hypertension I10 Multiple sclerosis G35 CPT Codes PPPS, SUBSEQ VISIT - G0439 (G0439) <Electronically signed by Jesús Medina MD> 06/23/212123 Name Value Range Interpretation Code Description Data Diana rce(s) Supporting Document(s) ID Date Data Source [id number] 06/16/2021 12:30:00 PM EDT [facility] @06/16/21 1120: UA W/ MICRO added. RFLXG = UMIC.Method of Collection:: Voided @06/16/21 1120: UA W/ MICRO added. RFLXG = UMIC.Method of Collection:: Voided Name Value Range Interpretation Code Description Data Diana rce(s) Supporting Document(s) Color of Urine [facility] Appearance of Urine CLEAR [facility] pH of Urine by Test strip 6.5 5-8 [facility] Specific gravity of Urine by Refractometry 1.017 1.005-1.030 [facility] Leukocyte esterase [Presence] in Urine by Test strip NEGATIVE Above high normal [facility] @DO MICRO!!!! Nitrite [Presence] in Urine by Test strip NEGATIVE [facility] Protein [Presence] in Urine by Test strip NEGATIVE [facility] Glucose [Mass/volume] in Urine by Automated test strip NEGATIVE NEG ATIVE [facility] Ketones [Presence] in Urine by Test strip NEGATIVE [facility] Urobilinogen [Presence] in Urine 0.2-1 EU/dl [facility] Bilirubin.total [Presence] in Urine by Automated test strip NEGATIVE [facility] Erythrocytes [#/volume] in Urine by Test strip NEGATIVE NEGATIVE [facility] URINE MICROSCOPIC ADDED Microscopic Added [facility] ID Date Data Source [id number] 06/16/2021 12:30:00 PM EDT [facility] @06/16/21 1120: UA W/ MICRO added. RFLXG = UMIC.Method of Collection:: Voided @06/16/21 1120: UA W/ MICRO added. RFLXG = UMIC.Method of Collection:: Voided Name Value Range Interpretation Code Description Data Diana rce(s) Supporting Document(s) Erythrocytes [#/volume] in Urine by Manual count 1-2 /hpf 0-5 [facility] Leukocytes [#/volume] in Urine by Manual count 2-4 /hpf 0-5 [facility] Cells [Type] in Urine sediment by Light microscopy [facility] ID Date Data Source [id number] 06/16/2021 12:01:00 PM EDT [facility] @06/16/21 1120: MANUAL DIFF added. RFLXG = DIFF. @06/16/21 1120: MANUAL DIFF added. RFLXG = DIFF. Name Value Range Interpretation Code Description Data Diana rce(s) Supporting Document(s) Leukocytes [#/volume] in Blood by Automated count 12.4 10*3/uL 4.45-10.71 Above high normal [facility] Erythrocytes [#/volume] in Blood by Automated count 6.01 10*6/uL 4.3- 6.1 N [facility] Hemoglobin [Moles/volume] in Blood 17.8 g/dL 13-18 N [facility] Hematocrit [Volume Fraction] of Blood by Automated count 54.3 % 42-52 Above high normal [facility] Erythrocyte mean corpuscular volume [Ent itic volume] in Cord blood by Automated count 90 fL 80-96 N [facility] ital Erythrocyte mean corpuscular hemoglobin [Entitic mass] by Au tomated count 30 pg 27-31 N [facility] Erythrocyte mean corpuscular hemoglobin concentration [Mass/volume] in Cord blood 33 g/dL 33-37 N [facility] ital Erythrocyte distribution width [Entitic volume] by Automated count 14 % 11-15 N [facility] Platelets [#/volume] in Blood by Automated count 136 10*3/uL 130-472 N [facility] Platelet mean volume [Entitic volume] in Blood 10.4 fL 9.1-13.1 N [facility] Neutrophils/100 leukocytes in Blood by Automated count 53.8 % 41- 77 N [facility] Neutrophils [#/volume] in Blood by Automated count 6.7 U 1.7-7.6 N [facility] Lymphocytes/100 leukocytes in Blood by Automated count 34.1 % 14- 46 N [facility] Lymphocytes [#/volume] in Blood by Automated count 4.2 U 0.6-4.6 N [facility] Monocytes/100 leukocytes in Blood by Automated count 6.7 % 4-12 N [facility] Monocytes [#/volume] in Blood by Automated count 0.8 U 0.2-1.2 N [facility] Eosinophils/100 leukocytes in Blood by Automated count 3.6 % 0-7 N [facility] Eosinophils [#/volume] in Blood by Automated count 0.4 U 0.0-0.5 N [facility] Basophils/100 leukocytes in Blood by Automated count 0.7 % 0.4-1 .3 N [facility] Basophils [#/volume] in Blood by Automated count 0.1 U 0.0-0.2 N [facility] NUCLEATED RED BLOOD CELL 0 % [facility] NUCLEATED RED BLOOD CELL# [address] [facility] Immature granulocytes [Presence] in Blood by Automated count 0-2 N [facility] Immature granulocytes [#/volume] in Blood by Automated count 0.1 U 0-0.1 N [facility] Manual Differential panel - Blood Manual Diff Added [facility] ID Date Data Source [id number] 06/16/2021 12:13:00 PM EDT [facility] @06/16/21 1120: MANUAL DIFF added. RFLXG = DIFF. @06/16/21 1120: MANUAL DIFF added. RFLXG = DIFF. Name Value Range Interpretation Code Description Data Diana rce(s) Supporting Document(s) Urea nitrogen [Mass/volume] in Serum or Plasma 26 mg/dL 9-23 Above high normal [facility] Sodium [Moles/volume] in Serum or Plasma 141 mmol/L 132-146 N [facility] Potassium [Moles/volume] in Serum or Plasma 4.2 mmol/L 3.5-5.5 N [facility] Chloride [Moles/volume] in Serum or Plasma 106 mmol/L 99-109 N [facility] Carbon dioxide, total [Moles/volume] in Serum or Plasma 32 mmol/ L 20-31 Above high normal [facility] Anion gap in Serum or Plasma 7 mmol/L 8-16 Below low normal [facility] Glucose [Mass/volume] in Serum or Plasma 105 mg/dL 74-106 N [facility] Creatinine 1.2 mg/dL 0.5-1.1 Above high normal [facility] Glomerular filtration rate/1.73 sq M.pre dicted [Volume Rate/Area] in Serum or Plasma 58 ml/min ABOVE 60 [facility] ital Alanine aminotransferase [Enzymatic acti vity/volume] in Serum or Plasma by With P-5'-P 24 U/L 10-49 N [facility] ital Aspartate aminotransferase [Enzymatic ac tivity/volume] in Serum or Plasma by With P-5'-P 13 U/L 0-33 N [facility] pital Alkaline phosphatase [Enzymatic activity/volume] in Serum or Plasma 68 U/L 45-129 N [facility] Calcium [Mass/volume] in Serum or Plasma 9.1 mg/dL 8.5-10.1 [facility] Bilirubin.total [Mass/volume] in Serum or Plasma 0.9 mg/dL 0.3-1.2 N [facility] Albumin [Mass/volume] in Serum or Plasma by Bromocresol purple (BCP) dye binding method 3.6 g/dL 3.2-4.8 N [facility] ital Protein [Mass/volume] in Serum or Plasma 6.5 g/dL 5.7-8.2 N [facility] ID Date Data Source [id number] 06/16/2021 12:01:00 PM EDT [facility] @06/16/21 1120: MANUAL DIFF added. RFLXG = DIFF. @06/16/21 1120: MANUAL DIFF added. RFLXG = DIFF. Name Value Range Interpretation Code Description Data Diana rce(s) Supporting Document(s) Cells counted [#] 100 [facility] Neutrophils [#/volume] in Blood by Manual count 52 % 41-77 N [facility] Lymphocytes [#/volume] in Blood by Manual count 39 % 14-46 N [facility] Monocytes [#/volume] in Blood by Manual count 7 % 4-12 N [facility] Eosinophils [#/volume] in Blood by Manual count 2 % 0-7 N [facility] Platelets [#/volume] in Blood by Estimate APPEARS NORMAL NORMAL [facility] Morphology [Interpretation] in Blood Narrative APPEARS NORMAL NORMAL [facility] ID Date Data Source [id number] 06/16/2021 12:13:00 PM EDT [facility] @06/16/21 1120: MANUAL DIFF added. RFLXG = DIFF. @06/16/21 1120: MANUAL DIFF added. RFLXG = DIFF. Name Value Range Interpretation Code Description Data Diana rce(s) Supporting Document(s) Triglycerides 134 mg/dL 0-150 N [facility] Cholesterol 195 mg/dL 120-200 N [facility] HDL Cholesterol 67 mg/dL [facility] HDL Less than 40 mg/dL: Major risk for CHDHDL Greater than 59 mg/dL: Low risk for CHD LDL Cholesterol, Calc 102 mg/dL 0-100 Above high normal [facility] ID Date Data Source [id number] 04/16/2021 10:10:00 AM EDT [facility] Name Value Range Interpretation Code Description Data Diana rce(s) Supporting Document(s) SARS-CoV-2 (COVID-19) RNA [Presence] in Respiratory specimen by JANETTE with probe detection Not Detected [facility] This lab was ordered by [facility] and reported by [facility]. ID Date Data Source [id number] 04/14/2021 08:16:00 AM EDT [facility] Name Value Range Interpretation Code Description Data Diana rce(s) Supporting Document(s) Bacteria identified in Urine by Culture [facility] ID Date Data Source [id number] 04/01/2021 03:52:00 PM EDT [facility] [address] [place] [id number] [phone] NAME SEX PT STATUS ACCOUNT NUMBER DENISSE BISHOP REG REF [id number] ORDERING PHYSICIAN LOCATION MEDICAL RECORD NO. Amos Gentile MD RAD [id number] ATTENDING PHYSICIAN DATE OF DATE OF EXAM/TIME Jesús Medina MD 1940 04/01/211358 TYPE / EXAM Xray Chest 2 view PA/LAT REASON FOR EXAM BLADDER STONES, PREOP CLINICAL HISTORY: [facility] BLADDER STONES, PREOP TECHNIQUE: AP and lateral views of the chest were obtained. COMPARISON: None available. FINDINGS: The cardiomediastinal silhouette is unremarkable. There is no focal pulmonary consolidation, pleural effusion or pneumothorax. The visualized osseous structures are grossly unremarkable. IMPRESSION: No focal pulmonary consolidation, pleural effusion or pneumothorax. Reported By Ciera Soliman MD on 04/01/211551 Signed By Ciera Soliman MD on 04/01/211552 Date Time CC: Jesús Medina MD; Ciera Soliman MD Techn: BAIAB Trans Dt/Tm: Trans by: DT Prt Dt/Tm: [id number]: Total DLP = 0.00 mGy-cm Fluoroscopy Time (in secs): Name Value Range Interpretation Code Description Data Diana rce(s) Supporting Document(s) ID Date Data Source [id number] 04/01/2021 11:26:00 AM EDT [facility] Name Value Range Interpretation Code Description Data Diana rce(s) Supporting Document(s) Leukocytes [#/volume] in Blood by Automated count 8.7 10*3/uL 4.45-10 .71 N [facility] Erythrocytes [#/volume] in Blood by Automated count 5.83 10*6/uL 4.3- 6.1 N [facility] Hemoglobin [Moles/volume] in Blood 17.3 g/dL 13-18 N [facility] Hematocrit [Volume Fraction] of Blood by Automated count 52.8 % 42-52 Above high normal [facility] Erythrocyte mean corpuscular volume [Ent itic volume] in Cord blood by Automated count 91 fL 80-96 N [facility] ital Erythrocyte mean corpuscular hemoglobin [Entitic mass] by Au tomated count 30 pg 27-31 N [facility] Erythrocyte mean corpuscular hemoglobin concentration [Mass/volume] in Cord blood 33 g/dL 33-37 N [facility] ital Erythrocyte distribution width [Entitic volume] by Automated count 14 % 11-15 N [facility] Platelets [#/volume] in Blood by Automated count 174 10*3/uL 130-472 N [facility] Platelet mean volume [Entitic volume] in Blood 10.5 fL 9.1-13.1 N [facility] Neutrophils/100 leukocytes in Blood by Automated count 51.3 % 41- 77 N [facility] Neutrophils [#/volume] in Blood by Automated count 4.5 U 1.7-7.6 N [facility] Lymphocytes/100 leukocytes in Blood by Automated count 33.4 % 14- 46 N [facility] Lymphocytes [#/volume] in Blood by Automated count 2.9 U 0.6-4.6 N [facility] Monocytes/100 leukocytes in Blood by Automated count 9.2 % 4-12 N [facility] Monocytes [#/volume] in Blood by Automated count 0.8 U 0.2-1.2 N [facility] Eosinophils/100 leukocytes in Blood by Automated count 4.6 % 0-7 N [facility] Eosinophils [#/volume] in Blood by Automated count 0.4 U 0.0-0.5 N [facility] Basophils/100 leukocytes in Blood by Automated count 1.0 % 0.4-1 .3 N [facility] Basophils [#/volume] in Blood by Automated count 0.1 U 0.0-0.2 N [facility] NUCLEATED RED BLOOD CELL 0 % [facility] NUCLEATED RED BLOOD CELL[facility] Immature granulocytes [Presence] in Blood by Automated count 0-2 N [facility] Immature granulocytes [#/volume] in Blood by Automated count 0.0 U 0-0.1 N [facility] Manual Differential panel - Blood NO [facility] ID Date Data Source [id number] 04/01/2021 12:03:00 PM EDT [facility] Name Value Range Interpretation Code Description Data Diana rce(s) Supporting Document(s) Urea nitrogen [Mass/volume] in Serum or Plasma 22 mg/dL 9-23 N [facility] Sodium [Moles/volume] in Serum or Plasma 143 mmol/L 132-146 [facility] Potassium [Moles/volume] in Serum or Plasma 3.9 mmol/L 3.5-5.5 [facility] Chloride [Moles/volume] in Serum or Plasma 106 mmol/L 99-109 [facility] Carbon dioxide, total [Moles/volume] in Serum or Plasma 31 mmol/L 20 -31 [facility] Anion gap in Serum or Plasma 10 mmol/L 8-16 [facility] Glucose [Mass/volume] in Serum or Plasma 81 mg/dL 74-106 N [facility] Creatinine 1.1 mg/dL 0.5-1.1 [facility] Glomerular filtration rate/1.73 sq M.pre dicted [Volume Rate/Area] in Serum or Plasma Greater Than 60 ABOVE 60 [facility] Calcium [Mass/volume] in Serum or Plasma 8.9 mg/dL 8.5-10.1 [facility] ID Date Data Source [id number] 04/01/2021 09:58:00 AM EDT [facility] Patient Name: DENISSE BISHOP : 1940 Sex: M Pt Unit #: [id number] Location:[facility] Provider: Visit Date/Time: 04/01/21 Primary Insurance: [employer] Secondary Insurance: Self Pay Intake Vital Signs 04/01/21 09:58 Current Height 5 ft 6.5 in Current Weight 180 lb Weight Measurement Method Standing Scale BMI 28.6 BP 136/76 Blood Pressure Location Lt brachial Position Sitting Pulse 79 Pulse Strength Normal Pulse Source Pulse Oximeter Pulse Oximetry (%) 97 Oxygen Delivery Method room air Intake Visit Reasons: Pre-operative H P Nurse Note: Pt's here for a pre-op clearance. Pt's having a cystoscopy w/ Dr. Gentile on 04/21/21. [place] Pneumatic Required: No Accompanied by: Self / Same as Patient Is patient in pain?: No Allergies No Known Food Allergies Allergy (Verified 04/01/21 10:35) lisinopril Adverse Reaction (Intermediate, Verified 11/30/20 17:51) cough Medications - Last Reconciled 04/01/21 by Jesús Medina M.D. amantadine HCl 100 mg PO BID aspirin 325 mg PO DAILY baclofen 10 mg PO BID cholecalciferol (vitamin D3) 1,000 units PO DAILY glatiramer (Copaxone) 40 mg subcut TIW metoprolol succinate ER 75 mg (1.5 x 50 mg) PO DAILY simvastatin (Zocor) 40 mg PO HS tamsulosin 0.4 mg PO DAILY zolpidem 5 mg PO QHS PRN Vision Wearing glasses?: Yes Fall Risk History of falls: No Ambulatory Aid:: None Gait/Transferring:: Normal Medications:: Analgesics HIV Testing Offer - ages 13-64 HIV testing Offer: No Requirement for HIV testing offer been met?: Not in age range Do you need a note to return Do you need a note to return to daycare/school/sports/work: No Coronavirus Screening Screening Are you currently positive or on isolation for COVID ?: No Do you have any NEW signs of one or more of the following?: no symptoms Do you have NEW signs of at least two of the following?: no symptoms HPI Pre- Operative H P Patient is having a cystoscopy with his urologist. This is a preoperative optimization visit. Surgery Information Proposed Surgical Procedure: Cystoscopy Date of surgery: 04/21/21 Surgeon: Dr. Gentile Anesthesia: general Covid Screening Pre-Op Covid testing ordered?: Yes Exercise tolerance Can climb one flight of stairs (12-13 steps) in less than 30 seconds without stopping and without symptoms: Yes Distance able to walk (blocks): More than 2 blocks Risk factors Pulmonary risk factors: age > 60 Active cardiac conditions: none Active risk factors: none Sleep apnea risks: No Pertinent Past History Medical History: Hypertension and Other (M.S., high cholesterol, BPH) Previous surgical complications: No Previous anesthesia intolerance: No Steroid use in last 6 months: No Allergies to meds or foods: Yes Pertinent Family History Family hx adverse reaction to anesthesia: No Family history coagulopathy: No Surgical Risk Surgical risk for this patient: Low PFSH Medical History (Updated 04/01/21 @ 10:42 by Jesús Medina M.D.) Benign prostatic hypertrophy without urinary obstruction Cataract Fluctuating PSA Fuch's Endothelial Dystrophy History hip fracture History of mumps History of varicella Kidney stones Laceration of hand Lymphoma Multiple sclerosis Optic Neuropathy Recurrent Sinusitis Surgical History (Updated 04/01/21 @ 10:42 by Jesús Medina M.D.) History of - surgery History of cholecystectomy History of external ear surgery (11/18/15) History of hip surgery History of prostate surgery History of rectal fissure History of skin graft S/P cataract extraction and insertion of intraocular lens S/P TURP Family History Mother Lung cancer Father Lung cancer Brother Suicide Brother Kidney disease Brother No problems noted. Daughter No problems noted. Daughter No problems noted. Daughter No problems noted. Daughter No problems noted. Daughter No problems noted. Sister No problems noted. Sister No problems noted. Other Autoimmune disease Diabetes Social History Does the Patient have a Healthcare Proxy: Yes Does Patient have a DNR?: Yes Does Patient have a Living Will?: Yes Advance Directives on File or in chart?: Yes household members: spouse marital status: highest education level completed: some college, no degree service: Yes current occupational status: retired pets and animals: Yes leisure activities: fishing and other Hx Recent Travel (where): No well-balanced diet: daily caffeine: Yes (no reply) high-fat food intake: 0-1 times daily daily servings fruits/ve-1 daily servings of milk/calcium: 2-4 eating out: 1-3 times/week reads food labels: sometimes during the past year weight has: remained stable Smoking Status: Never smoker alcohol intake: never substance use type: does not use sha/sabianism: Voodoo special sha needs: No seatbelt use: always helmet use: No drive intox or ride w/ intox auto carrier driver: No water heater temp set < 120 deg: Yes working smoke detector in home: Yes fire extinguisher in home: Yes carbon monox detector in home: Yes firearms in home: Yes firearms unloaded and locked: Yes victim of physical abuse: No victim of emotional abuse: No Sickle cell Sickle Cell Screening:: Not indicated Review of Systems Const Denies ano rexia, Denies excessive sweating, Denies fatigue, Denies fever(s) and Denies headache(s) ENT Reports abnormal hearing (Out of the right ear), Denies dysphagia and Denies headache(s) Card Denies chest pain, Denies pedal edema, Denies lightheadedness, Denies palpitations and Denies dyspnea Resp Denies dyspnea and Denies wheezing GI Denies abdominal pain, Denies change in bowel habits, Denies dysphagia, Denies early satiety, Deniesheartburn, Denies diarrhea, Denies nausea and Denies vomiting Neuro Reports abnormal hearing (Out of the right ear), Denies headache(s) and Denies memory loss Psych Denies memory loss Endo Denies excessive sweating, Denies fatigue and Denies palpitations Miah/Lymph Denies easy bleeding, Denies easy bruising and Denies lymphadenopathy Aller/Immun Denies wheezing Exam Const General: cooperative, healthy appearing, no acute distress, well developed and well groomed Nutritional Appearance: overweight Orientation: alert and awake HENSC Ears: other (Patient is status post surgical resection of his right ear) Eyes Pupils: PERRL Neck Neck: normal visual inspection (Right neck scar), no lymphadenopathy, supple and no JVD present Carotids: normal carotid upstroke Resp Effort Inspection: normal respiratory effort Auscultation: clear to auscultation bilaterally Percussion: percussion normal Cardio Jugular venous pressure: no JVD Rate: regular rate Rhythm: regular rhythm Heart Sounds: S1 normal and S2 normal GI Inspection: Yes normal to inspection Palpation: soft and nontender Auscultation: normal bowel sounds Neuro General: gait normal Extrem General: normal to inspection and no clubbing, cyanosis or edema Assessment Plan Assessment Plan (1) Pre-Operative Examination: Code(s): Z01.818 - Encounter for other preprocedural examination Plan: Based on today's physical evaluation and review of the available data including EKG, CXR and lab work, Mr. Bishop is medically optimized for the proposed urological procedure. A printed medication list with preoperative instructions was given to him. If there are any medical concerns, please reach me at [phone]. (2) Essential hypertension: Status: Acute Onset Date: 03/28/02 Code(s): I10 - Essential (primary) hypertension SNOMED Code(s): 80070734 Category: Medical Plan: Blood pressure is well controlled on the current regimen. Parenteral labetalol may be used if needed for unacceptably high blood pressure reading. (3) Pure hypercholesterolemia: Status: Acute Onset Date: 11/03/14 Code(s): E78.00 - Pure hypercholesterolemia, unspecified SNOMED Code(s): 405420436 Category: Medical Plan: Neither this condition nor its management will impact the urological procedure (4) BPH w/o urinary obs/LUTS: Status: Acute Onset Date: 11/03/14 Code(s): N40.0 - Benign prostatic hyperplasia without lower urinary tract symptoms SNOMED Code(s): 330517251 Category: Medical Plan: This is being followed and managed by the urologist. (5) IFG (impaired fasting glucose): Status: Acute Onset Date: 12/05/18 Code(s): R73.01 - Impaired fasting glucose SNOMED Code(s): 532269417 Category: Medical Plan: Blood glucose reading today was 81. Renal function is satisfactory. This should not be an issue for the proposed procedure. (6) Multiple sclerosis: Status: Acute Onset Date: 11/03/14 Code(s): G35 - Multiple sclerosis SNOMED Code(s): 64653597 Catego ry: Medical Plan: Patient continues close follow-up with his neurologist in [place]. His overall neurologic status has been stable since last visit. Neither this condition nor its management will impact the proposed procedure. Additional Comments Additional Comments: Patient came for a preoperative clearance. He will return in May for his annual physical. Certain parts of this note may have been carried over from prior notes to maintain accuracy of the patient's pertinent medical history and continuity of care. The details were verified and edited asappropriate. This document was dictated using [employer] speech recognition software. A reasonable attempt to proofread has been made to minimize errors. Please call if you notice any errors or have any questions. Orders Instructions: DASH Eating Plan (GEN) Hypertension (GEN) Follow Up: May (Hypertension) Coding Level of Care Code 45921 Est Pt Extended Comp Coding comments Coding Comments Ad ditional info for the twist tester: Preoperative medical optimization visit with EKG Exam Comprehensive Diagnoses Pre-Operative Examination Z01.818 Essential hypertension I10 Pure hypercholesterolemia E78.00 BPH w/o urinary obs/LUTS N40.0 IFG (impaired fasting glucose) R73.01 Multiple sclerosis G35 CPT Codes ELECTROCARDIOGRAM COMPLETE - 24218 ([id number]) <Electronically signed by Jesús Medina MD> 04/01/21 1654 Name Value Range Interpretation Code Description Data Diana rce(s) Supporting Document(s) ID Date Data Source [id number] 11/30/2020 10:25:00 AM [facility] Patient Name: DENISSE BISHOP : 1940 Sex: M Pt Unit #: [id number] Location:[facility] Provider: Visit Date/Time: 11/30/20 Primary Insurance: [employer]ARE Secondary Insurance: Self Pay Intake Vital Signs 11/30/20 10:26 Current Height 5 ft 6.5 in Current Weight 179 lb Weight Measurement Method Standing Scale BMI 28.4 BP 128/78 Blood Pressure Location Lt brachial Position Sitting Pulse 79 Pulse Strength Normal Pulse Source Pulse Oximeter Pulse Oximetry (%) 97 Oxygen Delivery Method room air Comment Skip Intake Visit Reasons: Hypertension Nurse Note: N/C [facility] Pneumatic Required: No Accompanied by: Self / Same as Patient Is patient in pain?: No Allergies lisinopril Adverse Reaction (Intermediate, Verified 11/30/20 17:51) cough Medications - Last Reconciled 11/30/20 by Jesús Medina M.D. amantadine HCl 100 mg PO BID aspirin 325 mg PO DAILY baclofen 10 mg PO BID cholecalciferol (vitamin D3) 1,000 units PO DAILY glatiramer (Copaxone) 40 mg subcut TIW metoprolol succinate ER 75 mg PO DAILY simvastatin (Zocor) 40 mg PO HS tamsulosin 0.4 mg PO DAILY zolpidem 5 mg PO QHS PRN Vision Wearing glasses?: Yes Fall Risk History of falls: No Ambulatory Aid:: Crutches Cane or Walker Gait/Transferring:: Weak Medications:: Antihypertensives HIV Testing Offer - ages 13-64 HIV testing Offer: No Requirement for HIV testing offer been met?: Not in age range Do you need a note to return Do you need a note to return to daycare/school/sports/work: No Coronavirus Screening Screening Have you traveled outside of [facility] or [facility] in the last 14 days.: Yes Has patient experienced coronavirus symptoms: No PFSH Medical History Benign prostatic hypertrophy without urinary obstruction Cataract Colon fissure Fluctuating PSA Fuch's Endothelial Dystrophy History hip fracture History of mumps History of varicella Hyperglycemia Hyperlipidemia Hypertension Kidney stones Laceration of hand Lymphoma Multiple sclerosis Optic Neuropathy Recurrent Sinusitis Skin Cancer Surgical History Cataract extraction and insertion of intraocular lens Cholecystectomy History of - surgery History of - surgery History of - surgery History of - surgery History of - surgery History of - surgery History of - surgery Right ear resection BCC 11/18/2015 Skin grafting 2015 TURP Family History Mother Lung cancer Father Lung cancer Brother Suicide Brother Kidney disease Brother No problems noted. Daughter No problems noted. Daughter No problems noted. Daughter No problems noted. Daughter No problems noted. Daughter No problems noted. Sister No problems noted. Sister No problems noted. Other Autoimmune disease Diabetes Social History Does the Patient have a Healthcare Proxy: Yes Does Patient have a DNR?: Yes Does Patient have a Living Will?: Yes Advance Directives on File or in chart?: Yes household members: spouse marital status: highest education level completed: some college, no degree service: Yes current occupational status: retired pets and animals: Yes leisure activities: fishing and other Hx Recent Travel (where): No well- balanced diet: daily caffeine: Yes (no reply) high-fat food intake: 0-1 times daily daily servings fruits/ve-1 daily servings of milk/calcium: 2-4 eating out: 1-3 times/week reads food labels: sometimes during the past year weight has: remained stable Smoking Status: Never smoker alcohol intake: never substance use type: does not use sha/sabianism: Voodoo special sha needs: No seatbelt use: always helmet use: No drive intox or ride w/ intox auto carrier driver: No water heater temp set < 120 deg: Yes working smoke detector in home: Yes fire extinguisher in home: Yes carbon monox detector in home: Yes firearms in home: Yes firearms unloaded and locked: Yes victim of physical abuse: No victim of emotional abuse: No HPI Additional HPI HPI Details: Patient with a history of high cholesterol, BPH, hypertension, MS and impaired fasting glucose came to the office for his 6-month checkup. He had no complaints. He has had a colonoscopy. The only finding was diverticulosis. He admits to compliance with his medication regimen without any side effects. Hypertension (Cardio) Current neurological symptoms: Denies headache(s) Current cardiovascular symptom: denies chest pain, dyspnea, palpitations or fatigue Current renal disease symptoms: denies fatigue, nausea or vomiting Most Recent Cardiac Tests: No Data to Display Review of Systems Const Denies anorexia, Denies excessive sweating, Denies fatigue, Denies fever(s) and Denies headache(s) ENT Reports abnormal hearing (Out of the right ear), Denies dysphagia and Denies headache(s) Card Denies chest pain, Denies pedal edema, Denies lightheadedness, Denies palpitations and Denies dyspnea Resp Denies dyspnea and Denies wheezing GI Denies abdominal pain, Denies change in bowel habits, Denies dysphagia, Denies early satiety, Deniesheartburn, Denies diarrhea, Denies nausea and Denies vomiting Neuro Reports abnormal hearing (Out of the right ear), Denies headache(s) and Denies memory loss Psych Denies memory loss Endo Denies excessive sweating, Denies fatigue and Denies palpitations Miah/Lymph Denies easy bleeding, Denies easy bruising and Denies lymphadenopathy Aller/Immun Denies wheezing Exam Const General: cooperati ve, healthy appearing, no acute distress, well developed and well groomed Nutritional Appearance: overweight Orientation: alert and awake HENSC Ears: other (Patient is status post surgical resection of his right ear) Eyes Pupils: PERRL Neck Neck: normal visual inspection (Right neck scar), full ROM, no lymphadenopathy, supple and no JVD present Carotids: normal carotid upstroke Resp Effort Inspection: normal respiratory effort Auscultation: clear to auscultation bilaterally Percussion: percussion normal Cardio Jugular venous pressure: no JVD Palpation: normal PMI Rate: regular rate Rhythm: regular rhythm Heart Sounds: S1 normal and S2 normal GI Inspection: Yes normal to inspection Palpation: soft and nontender Auscultation: normal bowel sounds Neuro General: gait normal Extrem General: normal to inspection, full ROM and no clubbing, cyanosis or edema Assessment Plan Assessment Plan (1) Essential hypertension: Status: Acute Onset Date: 03/28/02 Code(s): I10 - Essential (primary) hypertension SNOMED Code(s): 21562875 Category: Tim Medina M.D.: Blood pressure is well controlled on the current regimen. Patient was advised to follow a low-salt diet. Additional time was spent with the patient discussing the hypertension plan of care. Orders: Orders: CMP 6 Months LIPID PANEL 6 Months CBC W AUTO DIFF 6 Months URINALYSIS 6 Months (2) Pure hypercholesterolemia: Status: Acute Onset Date: 11/03/14 Code(s): E78.00 - Pure hypercholesterolemia, unspecified SNOMED Code(s): 782903574 Category: Tim Medina M.D.: Fasting lipid panel has been requested before the next visit. Orders: Orders: CMP 6 Months LIPID PANEL 6 Months CBC W AUTO DIFF 6 Months URINALYSIS 6 Months (3) BPH w/o urinary obs/LUTS: Status: Acute Onset Date: 11/03/14 Code(s): N40.0 - Benign prostatic hyperplasia without lower urinary tract symptoms SNOMED Code(s): 335344208 Category: Tim Medina M.D.: Patient continues follow-up with his urologist for this problem. (4) IFG (impaired fasting glucose): Status: Acute Onset Date: 12/05/18 Code(s): R73.01 - Impaired fasting glucose SNOMED Code(s): 903908352 Category: Tim Medina M.D.: Fasting blood sugar has been requested before the next visit. (5) Multiple sclerosis: Status: Acute Onset Date: 11/03/14 Code(s): G35 - Multiple sclerosis SNOMED Code(s): 52071300 Category: Medical Plan - Jesús Medina M.D.: Patient continues close follow-up with his neurologist in [place]. His overall neurologic status has been stable since last visit. Additional Comments Additional Comments: Patient came to the office for a 6-month checkup. He will return at the end of6 months for his annual physical and his Medicare annual wellness visit. Certain parts of this note may have been carried over from prior notes to maintain accuracy of the patient's pertinent medical history and continuity of care. The details were verified and edited asappropriate. This document was dictated using [employer] speech recognition software. A reasonable attempt to proofread has been made to minimize errors. Please call if you notice any errors or have any questions. Orders Follow Up: 6 Months (Annual/annual) Time spent Total time spent on medical discussion: 30 Coding Level of Care Code 73939 Est Pt Extended Comp Exam Detailed Diagnoses Essential hypertension I10 Pure hypercholesterolemia E78.00 BPH w/o urinary obs/LUTS N40.0 IFG (impaired fasting glucose) R73.01 Multiple sclerosis G35 Time Spent (min) 30 Comment 6 months review, reviewed colonoscopy report, addressed concerns <Electronically signed by Jesús Medina MD> 11/30/20 1756 Name Value Range Interpretation Code Description Data Diana rce(s) Supporting Document(s) ID Date Data Source [id number] 10/07/2020 10:18:00 AM [facility] Name: DENISSE BISHOP : 1940 Age: 80 MR#: [id number] Admit Date: 10/07/20 Provider: Channing Man MD Room #: Consulting Provider: Dictation Date: 10/07/20 Operative Note Operative Report Gen Surg Date of Service Date of service:: 10/07/20 Operative Report Surgeon: Channing Man MD Anesthesiologist(s): rPiya Casiano CRNA Anesthesia Type: MAC Pre-Operative Diagnosis: Positive Cologuard test Post-Operative Diagnosis: same as pre-op plus (Extensive sigmoid diverticulosis) Procedure Procedure: Colonoscopy to the terminal ileum Complications: No Post-Operative Condition: Good EBL(ml):: 0 Operative Treatments Specimens: No Specimens Intake Fluids intake (ml):: 700 Operative Narrative Narrative: Following identification of the patient in the preoperative holding area and confirmationwith him of colonoscopy as the procedure he was taken to the endoscopy suite and IV access established. Supplemental O2 was administered. Monitoring was begun. IV sedation was administered. A timeout was performed and confirmed colonoscopy as the procedure. Rectal examination showed no masses. A functioning colonoscope was introduced and advanced under direct vision to the terminal ileum which was intubated at 1007. The prep was good throughout. As a scope was introduced ex tensive sigmoid diverticulosis was noted with considerable tortuosity of the sigmoid as a result. The scope was withdrawn and the entire colonic mucosa examined. The cecum ileocecal valve ascendingand transverse colons were unremarkable. Likewise the descending colon showed no polyps masses or mucosal abnormalities. Aside from the diverticulosis there were no polyps or other abnormalities inthe sigmoid. The rectum was examined in both antegrade and retroflexed views. No abnormalities were seen. The scope was withdrawn and the procedure terminated at 1014. Intraoperative fluids cc. Patient tolerated the procedure well and was taken to the recovery in stable condition. With an unremarkable colonoscopy very should have repeat colonoscopy for symptoms only. Dictated by: <Electronically signed by Channing Man MD> Channing Man MD 10/07/20 1021 Channing Man MD SIGNATURE DA Report Cosigners: D: ELLE 10/07/20 1018 T: ELLE 10/07/20 1018 CC: Name Value Range Interpretation Code Description Data [facility] rce(s) Supporting Document(s) ID Date Data Source [id number] 10/04/2020 12:00:00 AM EST [facility] Name Value Range Interpretation Code Description [facility] Document(s) 2019-nCoV RNA XXX JANETTE+probe-Imp [facility] This lab was ordered by [facility] and reported by [facility]. ID Date Data Source [id number] 10/02/2020 09:14:00 AM [facility] Name: DENISSE BISHOP : 1940 Age: 80 MR#: [id number] Admit Date: 10/02/20 Provider: Channing Man MD Room #: Consulting Provider: Dictation Date: 10/02/20 Intake Vital Signs 10/02/20 09:17 Current Height 5 ft 6.5 in Current Weight 178 lb Weight Measurement Method Most recent on chart BMI 28.3 BP 130/58 Blood Pressure Location Lt brachial Position Sitting Pulse 64 Pulse Strength Normal Pulse Source Pulse Oximeter Temp 98.3 F Temp Source Oral Pulse Oximetry (%) 98 Oxygen Delivery Method room air Intake Visit Reasons: Pre-op visit (general surgery) Nurse Note: preop update colonoscopy 10/07/2020 [facility] Pneumatic Required: No Is patient in pain?: Yes (back pain) Pain scale (1-10): 5 Allergies lisinopril Allergy (Mild, Verified 06/06/19 11:05) cough HIV Testing Offer - ages 13-64 Requirement for HIV testing offer been met?: Not in age range Coronavirus Screening Screening Have you traveled outside of [facility] or [facility] in the last 14 days.: No Has patient experienced coronavirus symptoms: No PFSH Medical History Benign prostatic hypertrophy without urinary obstruction Cataract Colon fissure Fluctuating PSA Fuch's Endothelial Dystrophy History hip fracture History of mumps History of varicella Hyperglycemia Hyperlipidemia Hypertension Kidney stones Laceration of hand Lymphoma Multiple sclerosis Optic Neuropathy Recurrent Sinusitis Skin Cancer Surgical History Cataract extraction and insertion of intraocular lens Cholecystectomy History of - surgery History of - surgery History of - surgery History of - surgery History of - surgery History of - surgery History of - surgery Right ear resection BCC 11/18/2015 Skin grafting 2015 TURP Family History Mother Lung cancer Father Lung cancer Brother Suicide Brother Kidney disease Brother No problems noted. Daughter No problems noted. Daughter No problems noted. Daughter No problems noted. Daughter No problems noted. Daughter No problems noted. Sister No problems noted. Sister No problems noted. Other Autoimmune disease Diabetes Social History Does the Patient have a Healthcare Proxy: Yes Does Patient have a DNR?: Yes Does Patient have a Living Will?: Yes Advance Directives on File or in chart?: Yes household members: spouse marital status: highest education level completed: some college, no degree service: Yes current occupational status: retired pets and animals: Yes leisure activities: fishing and other Hx Recent Travel (where): No well-balanced diet: daily caffeine: Yes (no reply) high-fat food intake: 0-1 times daily daily servings fruits/ve- 1 daily servings of milk/calcium: 2-4 eating out: 1-3 times/week reads food labels: sometimes during the past year weight has: remained stable Smoking Status: Never smoker alcohol intake: never substance use type: does not use sha/sabianism: Voodoo special sha needs: No seatbelt use: always helmet use: No drive intox or ride w/ intox auto carrier driver: No wa ter heater temp set < 120 deg: Yes working smoke detector in home: Yes fire extinguisher in home: Yes carbon monox detector in home: Yes firearms in home: Yes firearms unloaded and locked: Yes victim of physical abuse: No victim of emotional abuse: No HPI Additional HPI HPI Details: Denisse is a 80-year-old male scheduled for colonoscopy to evaluate a positive Cologuard test. There has been no change in his medical history or medications. Review of Systems Const All systems reviewed are unremarkable except as noted in HPI and below Eyes Reports system reviewed and no additional complaints, except as documented and Reports requires corrective lenses ENT Reports system reviewed and no additional complaints, except as documented and Reports other (right outer ear removed) Card Reports system reviewed and no additional complaints, except as documented Resp Reports system reviewed and no additional complaints, except as documented GI Reports system reviewed and no additional complaints, except as documented Reports system reviewed and no additional complaints, except as documented and Reports other (kidneystones) Musc Reports system reviewed and no additional complaints, except as documented, Reports back pain and Reports arthralgias Skin/Breast Reports system reviewed and no additional complaints, except as documented Neuro Reports system reviewed and no additional complaints, except as documented Psych Reports system reviewed and no additional complaints, except as documented Endo Reports system reviewed and no additional complaints, except as documented Miah/Lymph Reports system reviewed and no additional complaints, except as documented Aller/Immun Reports system reviewed and no additional complaints, except as documented Exam Const General: cooperative, healthy appearing, comfortable and no acute distress Orientation: alert, awake and oriented x3 Resp Auscultation: clear to auscultation bilaterally Cardio Ra te: regular rate Rhythm: regular rhythm Heart Sounds: S1 normal and S2 normal Assessment Plan Assessment Plan (1) Encounter for preoperative examination for general surgical procedure: Code(s): Z01.818 - Encounter for other preprocedural examination Additional Comments Additional Comments: 80-year-old male scheduled for colonoscopy to evaluate a positive Cologuard test. The recommendation for colonoscopy and its benefits were reviewed. The procedure itself wasreviewed in detail. The need for a mechanical bowel prep was discussed. The possibility of polypectomy and/or biopsy was discussed. The use of sedation was discussed. The risks including bleeding, perforation and missed pathology were all reviewed. Finally the alternatives to colonoscopy were reviewed. All questions were answered. He wishes to proceed with colonoscopy as scheduled. Dictated by: <Electronically signed by Channing Man MD> Channing Man MD 10/02/20 0927 Channing Man MD SIGNATURE DA Report Cosigners: D: ELLE 10/02/20913 T: MONICA 10/02/20913 CC: Name Value Range Interpretation Code Description Data Diana rce(s) Supporting Document(s) ID Date Data Source [id number] 09/29/2020 11:55:00 AM EST [facility] Name Value Range Interpretation Code Description Data Diana rce(s) Supporting Document(s) Leukocytes [#/volume] in Blood by Automated count 9.7 10*3/uL 4.45-10 .71 N [facility] Erythrocytes [#/volume] in Blood by Automated count 5.89 10*6/uL 4.3- 6.1 N [facility] Hemoglobin [Moles/volume] in Blood 17.4 g/dL 13-18 N [facility] Hematocrit [Volume Fraction] of Blood by Automated count 54.7 % 42-52 Above high normal [facility] Erythrocyte mean corpuscular volume [Ent itic volume] in Cord blood by Automated count 92.9 fL 80-96 N [facility] ital Erythrocyte mean corpuscular hemoglobin [Entitic mass] by Automated count 29.5 pg 27-31 N [facility] l Erythrocyte mean corpuscular hemoglobin concentration [Mass/volume] in Cord blood 31.8 g/dL 33-37 Below low normal [facility] Erythrocyte distribution width [Entitic volume] by Automated count 14 % 11-15 N [facility] Platelets [#/volume] in Blood by Automated count 187 10*3/uL 130-472 N [facility] Platelet mean volume [Entitic volume] in Blood 10.4 fL 9.1-13.1 N [facility] Neutrophils/100 leukocytes in Blood by Automated count 47.0 % 41- 77 N [facility] Neutrophils [#/volume] in Blood by Automated count 4.6 U 1.7-7.6 N [facility] Lymphocytes/100 leukocytes in Blood by Automated count 37.3 % 14- 46 N [facility] Lymphocytes [#/volume] in Blood by Automated count 3.6 U 0.6-4.6 N [facility] Monocytes/100 leukocytes in Blood by Automated count 9.4 % 4-12 N [facility] Monocytes [#/volume] in Blood by Automated count 0.9 U 0.2-1.2 N [facility] Eosinophils/100 leukocytes in Blood by Automated count 4.8 % 0-7 N [facility] Eosinophils [#/volume] in Blood by Automated count 0.5 U 0.0-0.5 N [facility] Basophils/100 leukocytes in Blood by Automated count 0.8 % 0.4-1 .3 N [facility] Basophils [#/volume] in Blood by Automated count 0.1 U 0.0-0.2 N [facility] NUCLEATED RED BLOOD CELL 0 % [facility] NUCLEATED RED BLOOD CELL# [address] [facility] Immature granulocytes [Presence] in Blood by Automated count 0-2 N [facility] Immature granulocytes [#/volume] in Blood by Automated count 0.1 U 0-0.1 N [facility] Manual Differential panel - Blood NO [facility] ID Date Data Source [id number] 09/29/2020 12:12:00 PM [facility] Name Value Range Interpretation Code Description Data Diana rce(s) Supporting Document(s) Urea nitrogen [Mass/volume] in Serum or Plasma 25 mg/dL 9-23 Above high normal [facility] Sodium [Moles/volume] in Serum or Plasma 143 mmol/L 132-146 [facility] Potassium [Moles/volume] in Serum or Plasma 4.2 mmol/L 3.5-5.5 N [facility] Chloride [Moles/volume] in Serum or Plasma 108 mmol/L 99-109 [facility] Carbon dioxide, total [Moles/volume] in Serum or Plasma 33 mmol/ L 20-31 Above high normal [facility] Anion gap in Serum or Plasma 6 mmol/L 8-16 Below low normal [facility] Glucose [Mass/volume] in Serum or Plasma 78 mg/dL 74-106 [facility] Creatinine 1.1 mg/dL 0.5-1.1 [facility] Glomerular filtration rate/1.73 sq M.pre dicted [Volume Rate/Area] in Serum or Plasma Greater Than 60 ABOVE 60 [facility] Calcium [Mass/volume] in Serum or Plasma 9.4 mg/dL 8.5-10.1 [facility] ID Date Data Source [id number] 09/29/2020 10:10:00 AM [facility] Patient Name: DENISSE BISHOP : 1940 Sex: M Pt Unit #: [id number] Location:[facility] Provider: Visit Date/Time: 09/29/20 Primary Insurance: [employer] Secondary Insurance: Self Pay Intake Vital Signs 09/29/20 10:14 Current Height 5 ft 6.5 in Current Weight 178 lb Weight Measurement Method Standing Scale BMI 28.3 BP 132/80 Blood Pressure Location Lt brachial Position Sitting Pulse 66 Pulse Strength Normal Pulse Source Pulse Oximeter Pulse Oximetry (%) 96 Oxygen Delivery Method room air Comment Skip Intake Visit Reasons: Pre-operative H P Nurse Note: Pt's having a colonscopy w/ Dr. Man on 10/07/20. [facility]eter Pneumatic Required: No Accompanied by: Self / Same as Patient Is patient in pain?: No Allergies lisinopril Allergy (Mild, Verified 06/06/19 11:05) cough Medications - Last Reconciled 09/29/20 by Jesús Medina M.D. amantadine HCl 100 mg PO BID aspirin 325 mg PO DAILY baclofen 10 mg PO BID cholecalciferol (vitamin D3) 1,000 units PO DAILY glatiramer (Copaxone) 40 mg subcut TIW metoprolol succinate ER 75 mg (1.5 x 50 mg) PO DAILY simvastatin (Zocor) 40 mg PO HS tamsulosin mg PO zolpidem 5 mg PO QHS PRN Vision Wearing glasses?: Yes Fall Risk History of falls: No Ambulatory Aid:: Crutches Cane or Walker Gait/Transferring:: Weak Medications:: Antihypertensives HIV Testing Offer - ages 13-64 HIV testing Offer: No Requirement for HIV testing offer been met?: Not in age range Do you need a note to return Do you need a note to return to daycare/school/sports/work: No Coronavirus Screening Screening Have you traveled outside of [facility] or [facility] in the last 14 days.: No Has patient experienced coronavirus symptoms: No [facility] Medical History (Updated 09/29/20 @ 10:52 by Jesús Medina M.D.) Benign prostatic hypertrophy without urinary obstruction Cataract Colon fissure Fluctuating PSA Fuch's Endothelial Dystrophy History hip fracture History of mumps History of varicella Hyperglycemia Hyperlipidemia Hypertension Kidney stones Laceration of hand Lymphoma Multiple sclerosis Optic Neuropathy Recurrent Sinusitis Skin Cancer Surgical History Cataract extraction and insertion of intraocular lens Cholecystectomy History of - surgery History of - surgery History of - surgery History of - surgery History of - surgery History of - surgery Hi story of - surgery Right ear resection BCC 11/18/2015 Skin grafting 2015 TURP Family History Mother Lung cancer Father Lung cancer Brother Suicide Brother Kidney disease Brother No problems noted. Daughter No problems noted. Daughter No problems noted. Daughter No problems noted. Daughter No problems noted. Daughter No problems noted. Sister No problems noted. Sister No problems noted. Other Autoimmune disease Diabetes Social History Does the Patient have a Healthcare Proxy: Yes Does Patient have a DNR?: Yes Does Patient have a Living Will?: Yes Advance Directives on File or in chart?: Yes household members: spouse marital status: highest education level completed: some college, no degree service: Yes current occupational status: retired pets and animals: Yes leisure activities: fishing and other Hx Recent Travel (where): No well-balanced diet: daily caffeine: Yes (no reply) high-fat food intake: 0-1 times daily daily servings fruits/ve-1 daily servings of milk/calcium: 2-4 eating out: 1-3 times/week reads food labels: sometimes during the past year weight h as: remained stable Smoking Status: Never smoker alcohol intake: never substance use type: does not use sha/sabianism: Voodoo special sha needs: No seatbelt use: always helmet use: No drive intox or ride w/ intox auto carrier driver: No water heater temp set < 120 deg: Yes working smoke detector in home: Yes fire extinguisher in home: Yes carbon monox detector in home: Yes firearms in home: Yes firearms unloaded and locked: Yes victim of physical abuse: No victim of emotional abuse: No HPI Pre- Operative H P Surgery Information Proposed Surgical Procedure: Colonoscopy Date of surgery: 10/07/20 Surgeon: Dr. Man Anesthesia: general Covid Screening Pre-Op Covid testing ordered?: Yes Exercise tolerance Can climb one flight of stairs (12-13 steps) in less than 30 seconds without stopping and without symptoms: Yes Distance able to walk (blocks): More than 2 blocks Risk factors Pulmonary risk factors: age > 60 Active cardiac conditions: none Active risk factors: none Sleep apnea risks: No Pertinent Past History Medical History: Hypertension and Other (M.S., high cholesterol, BPH) Previous surgical complications: No Previous anesthesia intolerance: No Steroid use in last 6 months: No Allergies to meds or foods: Yes Pertinent Family History Family hx adverse reaction to anesthesia: No Family history coagulopathy: No Surgical Risk Surgical risk for this patient: Low Review of Systems Const Denies anorexia, Denies excessive sweating, Denies fatigue, Denies fever(s) and Denies headache(s) ENT Reports abnormal hearing (Out of the right ear), Denies dysphagia and Denies headache(s) Card Denies chest pain, Denies pedal edema, Denies lightheadedness, Denies palpitations and Denies dyspnea Resp Denies dyspnea and Denies wheezing GI Denies abdominal pain, Denies change in bowel habits, Denies dysphagia, Denies early satiety, Deniesheartburn, Denies diarrhea, Denies nausea and Denies vomiting Neuro Reports abnormal hearing (Out of the right ear), Denies headache(s) and Denies memory loss Psych Denies memory loss Endo Denies excessive sweating, Denies fatigue and Denies palpi tations Miah/Lymph Denies easy bleeding, Denies easy bruising and Denies lymphadenopathy Aller/Immun Denies wheezing Exam Const General: cooperative, healthy appearing, no acute distress, well developed and well groomed Nutritional Appearance: overweight Orientation: alert and awake HENSC Ears: other (Patient is status post surgical resection of his right ear) Eyes Pupils: PERRL Neck Neck: normal visual inspection (Right neck scar), full ROM, no lymphadenopathy, supple and no JVD present Carotids: normal carotid upstroke Chest Chest: normal inspection of the chest Resp Effort Inspection: normal respiratory effort Auscultation: clear to auscultation bilaterally Percussion: percussion normal Cardio Jugular venous pressure: no JVD Palpation: normal PMI Rate: regular rate Rhythm: regular rhythm Heart Sounds: S1 normal and S2 normal GI Inspection: Yes normal to inspection Palpation: soft and nontender Auscultation: normal bowel sounds Neuro General: gait normal Extrem General: normal to inspection, full ROM and no clubbing, cyanosis or edema Assessment Plan Assessment Plan (1) Pre-Operative Examination: Code(s): Z01.818 - Encounter for other preprocedural examination Plan - Jesús Medina M.D.: Based on today's physical evaluation and review of the available data, Mr. Bishop is medically optimized for the proposed colonoscopy procedure. A printed medication list with preoperative instructions was given to him. If there are any medical concerns, please reach me at [phone]. Orders: Orders: BMP Today C BC W AUTO DIFF Today (2) Occult blood in stools: Status: Acute Code(s): R19.5 - Other fecal abnormalities SNOMED Code(s): 43712813 Category: Medical Plan - Jesús Medina M.D.: This is being investigated with a colonoscopy. (3) Essential hypertension: Status: Acute Onset Date: 03/28/02 Code(s): I10 - Essential (primary) hypertension SNOMED Code(s): 97703491 Category: Medical Plan - Jesús Medina M.D.: Blood pressure is well controlled on the current regimen. Medications will be continued through theperioperative period. Orders: Orders: BMP Today CBC W AUTO DIFF Today (4) Multiple sclerosis: Status: Acute Onset Date: 11/03/14 Code(s): G35 - Multiple sclerosis SNOMED Code(s): 32576659 Category: Medical Plan - Jesús Medina M.D.: Patient is on Copaxone. The disease is quiet at this time. Additional Comments Additional Comments: Patient came for a preoperative optimization visit. EKG was satisfactory. CBCand BMP results are satisfactory. <Electronically signed by Jesús Medina MD> 09/29/20 1322 Name Value Range Interpretation Code Description Data Diana rce(s) Supporting Document(s) ID Date Data Source [id number] 09/02/2020 09:20:00 AM [facility] Name: DENISSE BISHOP : 1940 Age: 80 MR#: [id number] Admit Date: 09/02/20 Provider: Channing Man MD Room #: Consulting Provider: Dictation Date: 09/02/20 Intake Vital Signs 09/02/20 09:22 Current Height 5 ft 6.5 in Current Weight 175 lb Weight Measurement Method Most recent on chart BMI 27.8 BP 130/70 Blood Pressure Location Lt brachial Position Sitting Pulse 77 Pulse Strength Normal Pulse Source Pulse Oximeter Temp 98.2 F Temp Source Oral Pulse Oximetry (%) 96 Oxygen Delivery Method room air Intake Visit Reasons: Positive Fecal Occult Blood Screening Riveter Pneumatic Required: No Is patient in pain?: Yes (left neck ) Pain scale (1-10): 5 Allergies lisinopril Allergy (Mild, Verified 06/06/19 11:05) cough HIV Testing Offer - ages 13-64 Requirement for HIV testing offer been met?: Not in age range Coronavirus Screening Screening Have you traveled outside of [facility] or [facility] in the last 14 days.: No Has patient experienced coronavirus symptoms: No [facility] Medical History Benign prostatic hypertrophy without urinary obstruction Cataract Colon fissure Fluctuating PSA Fuch's Endothelial Dystrophy History hip fracture History of mumps History of varicella Hyperglycemia Hyperlipidemia Hypertension Kidney stones Laceration of hand Lymphoma Multiple sclerosis Optic Neuropathy Recurrent Sinusitis Skin Cancer Surgical History Cataract extraction and insertion of intraocular lens Cholecystectomy History of - surgery History of - surgery History of - surgery History of - surgery History of - surgery History of - surgery History of - surgery Right ear resection BCC 11/18/2015 Skin grafting 2015 TURP Family History Mother Lung cancer Father Lung cancer Brother Suicide Brother Kidney disease Brother No problems noted. Daughter No problems noted. Daughter No problems noted. Daughter No problems noted. Daughter No problems noted. Daughter No problems noted. Sister No problems noted. Sister No problems noted. Other Autoimmune disease Diabetes Social History Does the Patient have a Healthcare Proxy: Yes Does Patient have a DNR?: Yes Does Patient have a Living Will?: Yes Advance Directives on File or in chart?: Yes household members: spouse marital status: highest education level completed: some college, no degree service: Yes current occupational status: retired pets and animals: Yes leisure activities: fishing and other Hx Recent Travel (where): No well-balanced diet: daily caffeine: Yes (no reply) high-fat food intake: 0-1 times daily daily servings fruits/ve-1 daily servings of milk/calcium: 2-4 eating out: 1-3 times/week reads food labels: sometimes during the past year weight has: remained stable Smoking Status: Never smoker alcohol intake: never substance use type: does not use sha/sabianism: Voodoo special sha needs: No seatbelt use: always helmet use: No drive intox or ride w/ intox auto carrier driver: No water heater temp set < 120 deg: Yes working smoke detector in home: Yes fire extinguisher in home: Yes carbon monox detector in home: Yes firearms in home: Yes firearms unloaded and locked: Yes victim of physical abuse: No victim of emotional abuse: No HPI Additional HPI HPI Details: Denisse is a 80-year-old male here to discuss colonoscopy to evaluate the finding of heme positive stool. He has no abdominal pain. He is never seen carrie blood after moving his bowels. His last colonoscopy was over 10 years ago. 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) Card Reports system reviewed and no additional complaints, except as documented Resp Reports system reviewed and no additional complaints, except as documented GI Reports system reviewed and no additional complaints, except as documented Reports system reviewed and no additional complaints, except as documented and Reports other (kidneystones) Musc Reports system reviewed and no additional complaints, except as documented Skin/Breast Reports system reviewed and no additional complaints, except as documented Neuro Reports system reviewed and no additional complaints, except as documented Psych Reports system reviewed and no additional complaints, except as documented Endo Reports system reviewed and no additional complaints, except as documented Miah/Lymph Reports system reviewed and no additional complaints, except as documented Aller/Immun Reports system reviewed and no additional complaints, except as documented Exam Const General: cooperative, healthy appearing, comfortable and no acute distress Orientation: alert, awake and oriented x3 Resp Auscultation: clear to auscultation bilaterally Cardio Rate: regular r ate Rhythm: regular rhythm Heart Sounds: S1 normal and S2 normal GI Other: Nondistended contour. He has no mass, tenderness or organomegaly. Assessment Plan Assessment Plan (1) Positive fecal immunochemical test: Code(s): R19.5 - Other fecal abnormalities Additional Comments Additional Comments: 80-year-old male with heme positive stool. This should be evaluated with colonoscopy. The recommendation for colonoscopy and its benefits were reviewed. The procedure itself was reviewed in detail. The need for a mechanical bowel prep was discussed. The possibility of polypectomy and/or biopsy was discussed. The use of sedation was discussed. The risks including bleeding, perforation and missed pathology were all reviewed. Finally the alternatives to colonoscopy were reviewed. All questions were answered. He wishes to proceed withcolonoscopy. We will schedule this when convenient for him. Dictated by: <Electronically signed by Channing Man MD> Channing Man MD 09/02/20 0934 Channing Man MD SIGNATURE DA Report Cosigners: D: ELLE 09/02/20919 T: MONICA 09/02/20919 CC: Name Value Range Interpretation Code Description Data Diana rce(s) Supporting Document(s) Procedure Social History Code Duration Value Status Description Data Source(s ) Smoking 05/05/2021 12:00:00 AM EDT Never Smoker completed Never S moker eCW1 ([facility]) 03/22/2021 03:01:00 PM EDT No completed [facility] 03/22/2021 03:01:00 PM EDT No completed No [facility] 03/22/2021 03:01:00 PM EDT Never smoker completed Never s [facility] Smoking 03/22/2021 03:01:00 PM EDT Never smoker completed Never s [facility] 03/22/2021 03:01:00 PM EDT No completed [facility] 03/22/2021 03:01:00 PM EDT No completed [facility] 03/22/2021 03:01:00 PM EDT Never smoker completed Never s [facility] Smoking 03/15/2021 12:00:00 AM EDT Never Smoker completed Never S moker eCW1 ([facility]) Smoking 03/15/2021 12:00:00 AM EDT Never Smoker completed Never S moker eCW1 ([facility]) Smoking 02/15/2021 12:00:00 AM EDT Never Smoker completed Never S moker eCW1 ([facility]) Smoking 02/15/2021 12:00:00 AM EDT Never Smoker completed Never S moker eCW1 ([facility]) 10/06/2020 08:37:00 AM EST No completed No [facility] 10/06/2020 08:37:00 AM EST Never smoker completed Never s [facility] Smoking 10/06/2020 08:37:00 AM EST Never smoker completed Never s [facility] 10/06/2020 08:37:00 AM EST No completed No [facility] 10/06/2020 08:37:00 AM EST Never smoker completed Never s [facility] Smoking 10/06/2020 08:37:00 AM EST Never smoker completed Never s [facility] 09/02/2020 09:39:00 AM EST No completed No [facility] 09/02/2020 09:39:00 AM EST No completed No [facility] 09/02/2020 09:39:00 AM EST Never smoker completed Never s [facility] Smoking 09/02/2020 09:39:00 AM EST Never smoker completed Never s [facility] Smoking 09/01/2020 12:00:00 AM EST Never Smoker completed Never S moker eCW1 ([facility]) Smoking 09/01/2020 12:00:00 AM EST Never Smoker completed Never S moker eCW1 ([facility]) Vital Signs ID Date Data Source UNK Name Value Range Interpretation Code Description Data Source(s) Body weight 179 [lb_av] 179 [lb_av] eCW1 ([facility]) Body height 67 [in_i] 67 [in_i] eCW1 ([facility]) Body mass index (BMI) [Ratio] 28.03 kg/m2 28.03 kg/m2 W1 ([facility]) Heart rate 59 /min 59 /min eCW1 ([facility]) Respiratory rate 17 /min 17 /min eCW1 ([facility] Body temperature 96.6 [degF] 96.6 [degF] eCW1 ( [facility]) Systolic blood pressure 132 mm[Hg] 132 mm[Hg] e CW1 ([facility]) Diastolic blood pressure 78 mm[Hg] 78 mm[Hg] eCW1 ([facility]) Body height 67 [in_i] 67 [in_i] eCW1 ([facility]) Body mass index (BMI) [Ratio] 28.35 kg/m2 28.35 kg/m2 W1 ([facility]) Heart rate 51 /min 51 /min eCW1 ([facility]) Respiratory rate 17 /min 17 /min eCW1 ([facility]) Body temperature 97.3 [degF] 97.3 [degF] eCW1 ( [facility]) Systolic blood pressure 162 mm[Hg] 162 mm[Hg] e CW1 ([facility]) Body weight 181 [lb_av] 181 [lb_av] eCW1 ([facility]) Diastolic blood pressure 85 mm[Hg] 85 mm[Hg] eCW1 ([facility]) Body weight 181.6 [lb_av] 181.6 [lb_av] eCW1 ([facility]) Body height 67 [in_i] 67 [in_i] eCW1 ([facility]) Body mass index (BMI) [Ratio] 28.44 kg/m2 28.44 kg/m2 eCW1 ([facility]) Heart rate 78 /min 78 /min eCW1 ([facility]) Respiratory rate 18 /min 18 /min eCW1 ([facility]) Body temperature 97.3 [degF] 97.3 [degF] eCW1 ( [facility]) Systolic blood pressure 142 mm[Hg] 142 mm[Hg] e CW1 ([facility]) Diastolic blood pressure 78 mm[Hg] 78 mm[Hg] eCW1 ([facility]) Body weight 174 [lb_av] 174 [lb_av] eCW1 ([facility]) Body height 67 [in_i] 67 [in_i] eCW1 ([facility]) Body mass index (BMI) [Ratio] 27.25 kg/m2 27.25 kg/m2 eCW1 ([facility]) Heart rate 70 /min 70 /min eCW1 ([facility]) Respiratory rate 18 /min 18 /min eCW1 ([facility]) Body temperature 97.6 [degF] 97.6 [degF] eCW1 ( [facility]) Systolic blood pressure 146 mm[Hg] 146 mm[Hg] e CW1 ([facility]) Diastolic blood pressure 72 mm[Hg] 72 mm[Hg] eCW1 ([facility])
[2021-09-30] MEDS ORDERED: TRAM50TA2 (14:24)
--- OUTSIDE RECORDS SUMMARY | 2021-09-30 17:32 | CCD ---
Author Author [facility] Organization [facility] Address Unknown Phone Unavailable Care Team Providers Care Crm Manager Name Role Phone Dante Medina MD Unavailable [...] Unavailable Unavailable CarolDante lopez MD Unavailable Unavailable CarolaDnte lopez MD Unavailable Unavailable CarolDante lopez MD [...] Unavailable Carol, R Jesús MD Unavailable Unavailable CarolDante lopez MD Unavailable Unavailable CarolDante MD Unavailable [...] is protected by Article 27-F of the [place] State Public Health law. If you continue you may have access to information: Regarding HIV / AIDS; Provided by facilities licensed or operated by the [facility] Office of Mental Health; or Provided by the [facility] Office for People With Developmental Disabilities. If such information is present, then the following [facility] mandated warning applies: This information has been [...] law may result in a fine or detention sentence or both. A general authorization for the release of medical or other information is NOT sufficient authorization for further disc losure. Allergies and Adverse Reactions Type Description Substance Reaction Status Data Source(s ) Food allergy No Known Food Allergies No Known Food Allergies [facility] Drug allergy lisinopril Lisinopril cough MO [facility] Family History Family Member Name Family Member Gender Family Member Status Date o f Status Description Data Source(s) Unknown Condition [facility] Unknown Condition [facility] Unknown Condition [facility] Unknown Condition [facility] Unknown Condition [facility] Unknown Condition [facility] Unknown Condition [facility] Unknown Condition [facility] Unknown Condition [facility] Unknown Condition [facility] Unknown Condition [facility] Unknown Condition [facility] Unknown Condition [facility] Unknown Condition [facility] Unknown Condition [facility] Unknown Condition [facility] Unknown Condition [facility] Unknown Condition [facility] Unknown Unknown 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 Outpatient Attender: Jesús Medina MDReferrer: Jesús Medina MD 06/21/2021 10:09:00 AM EDT - 06/21/2021 11:15:00 AM EDT [facility] Outpatient Attender: Jesús Medina MD 06/16/2021 10:47:00 AM EDT [facility] Outpatient [address] [facility] [place], [facility] [id number] 05/05/2021 12:00:00 AM EDT eCW1 ([facility]) Unknown [address] [facility] [address] 04/19/2021 12:00:00 AM EDT [facility]CW1 [facility] Outpatient Attender: AMOS GENTILE MD 04/13/2021 11 :38:00 AM EDT N21.0,Z01.818,N39.0 [facility] N21.0,Z01.818,N39.0 Outpatient Attender: AMOS GENTILE MD 04/01/2021 11 :01:00 AM EDT N21.0,Z01.818 [facility] N21.0,Z01.818 Outpatient Attender: Jesús Medina MDReferrer: Jesús Medina MD 04/01/2021 09:58:00 AM EDT - 04/01/2021 10:52:00 AM EDT [facility] (Cysto1) Urology [address] [place] [address] 03/15/2021 12:00:00 AM EDT eCW1 ([facility]) Unknown [address] [facility] [place], [facility] [address] 02/22/2021 12:00:00 AM EDT eCW1 [facility] Outpatient [address] [facility] [address] 02/15/2021 12:00:00 AM EDT eCW1 ([facility] Unknown [address] [facility] [place] [address] 01/18/2021 12:00:00 AM EDT eCW1 ([facility]) Outpatient Attender: Jesús Medina MDReferrer: Jesús Medina MD 11/30/2020 10:14:00 AM EST - 11/30/2020 10:54:00 AM EST [facility] Outpatient Attender: Channing Man MD 07:26:00 AM EST - 10/07/2020 11:40:00 AM EST R19.5/COLONOSCOPY [id number] [facility] l R19.5/COLONOSCOPY [id number] Patient discharged. Outpatient Attender: Channing Man MDReferrer: Jesús Medina MD 10/02/2020 09:14:00 AM EST - 10/02/2020 09:28:00 AM EST [facility] Outpatient Attender: Jesús Medina MD 09/29/2020 10:53:00 AM EST I10,Z01.818 [facility] I10,Z01.818 Outpatient Attender: Jesús Medina MDReferrer: Jesús Medina MD 09/29/2020 10:12:00 AM EST - 09/29/2020 10:51:00 AM EST [facility] Outpatient Attender: Channing Man MDReferrer: Jesús Medina MD 09/02/2020 09:16:00 AM EST [facility] Outpatient [address] [facility] [place] [address] 09/01/2020 12:00:00 AM EST eCW1 ([facility]) Unknown [address] [facility] [place] [address] 08/11/2020 12:00:00 AM EDT eCW1 ([facility]) Unknown [address] [facility] [address] 08/05/2020 12:00:00 AM EDT eCW1 ([facility]) Immunizations Vaccine Date Status Description Data Source(s) COVID-19 Moderna 01/13/2021 12:00:00 AM EDT completed [facility] COVID-19 VACCINE Moderna 01/13/2021 12:00:00 AM EDT completed [facility] Vaccine Series Complete: YESThis Data wa s Submitted to [facility] Via [employer]. COVID-19 VACCINE, MRNA-1273, LNP-S (MODERNA)/PF 01/13/2021 1 2:00:00 AM EDT completed [facility] COVID-19 Moderna 12/12/2020 12:00:00 AM EST completed [facility] COVID-19 VACCINE Moderna 12/12/2020 12:00:00 AM EST completed [facility] Vaccine Series Complete: NOThis Data was Submitted to [facility] Via [employer]. COVID-19 VACCINE, MRNA-1273, LNP-S (MODERNA)/PF 12/12/2020 1 2:00:00 AM EST completed [facility] IIV3. This is one of two codes replacing CVX 15, which is being retired. 08/01/2020 12:00:00 AM EDT completed [facility] IIV3. This is one of two codes replacing CVX 15, which is being retired. 08/01/2020 12:00:00 AM EDT completed influenza vaccine, inactivated [facility] IIV3. This is one of two codes replacing CVX 15, which is being retired. 08/01/2020 12:00:00 AM EDT completed influenza vaccine, inactivated [facility] IIV3. This is one of two codes replacing CVX 15, which is being retired. 08/01/2020 12:00:00 AM EDT completed influenza vaccine, inactivated [facility] IIV3. This is one of two codes replacing CVX 15, which is being retired. 08/01/2020 12:00:00 AM EDT completed influenza vaccine, inactivated [facility] IIV3. This is one of two codes replacing CVX 15, which is being retired. 08/01/2020 12:00:00 AM EDT completed influenza vaccine, inactivated [facility] Medications Medication Brand Name Start Date Product Form Dose Route Admi nistrative Instructions Pharmacy Instructions Status Indications Reaction Description Data Source(s) doxycycline hyclate 100 MG Oral Capsule Doxycycline Hyclate Doxycycline Hyclate 05/04/2021 01:56:41 PM EDT 200 MG [facility] 24 HR metoprolol succinate 50 MG Extende d Release Oral Tablet Metoprolol Succinate Metoprolol Succinate 02/23/2021 11:44:34 AM EDT 75 MG [facility] Zolpidem tartrate 5 MG Oral Tablet Zolpidem 10/06/2020 08:37:23 AM ES T 5 MG [facility] Simvastatin 40 MG Oral Tablet Simvastatin (Zocor) 40 m g tablet Simvastatin (Zocor) 40 mg tablet 10/06/2020 08:37:23 AM EST 40 MG [facility] Simvastatin 40 MG Oral Tablet Simvastatin (Zocor) 40 m g tablet Simvastatin (Zocor) 40 mg tablet 10/06/2020 08:37:23 AM EST 40 MG [facility] Zolpidem tartrate 5 MG Oral Tablet Zolpidem 10/06/2020 08:37:23 AM ES T 5 MG [facility] 24 HR metoprolol succinate 50 MG Extende d Release Oral Tablet Metoprolol Succinate Metoprolol Succinate 10/06/2020 08:37:23 AM EST 75 MG [facility] 24 HR metoprolol succinate 50 MG Extende d Release Oral Tablet Metoprolol Succinate Metoprolol Succinate 10/06/2020 08:37:23 AM EST 75 MG [facility] Simvastatin 40 MG Oral Tablet Simvastatin (Zocor) 40 m g tablet Simvastatin (Zocor) 40 mg tablet 10/06/2020 08:37:23 AM EST 40 MG [facility] Zolpidem tartrate 5 MG Oral Tablet Zolpidem 10/06/2020 08:37:23 AM ES T 5 MG [facility] 24 HR metoprolol succinate 50 MG Extende d Release Oral Tablet Metoprolol Succinate Metoprolol Succinate 10/06/2020 08:37:23 AM EST 75 MG [facility] Simvastatin 40 MG Oral Tablet Simvastatin (Zocor) 40 m g tablet Simvastatin (Zocor) 40 mg tablet 06/22/2020 01:52:39 PM EDT 40 MG co [facility] Simvastatin 40 MG Oral Tablet Simvastatin (Zocor) 40 m g tablet Simvastatin (Zocor) 40 mg tablet 06/22/2020 01:52:39 PM EDT 40 MG co [facility] Simvastatin 40 MG Oral Tablet Simvastatin (Zocor) 40 m g tablet Simvastatin (Zocor) 40 mg tablet 06/22/2020 01:52:39 PM EDT 40 MG co mpleted [facility] 24 HR metoprolol succinate 50 MG Extende d Release Oral Tablet Metoprolol Succinate Metoprolol Succinate 06/22/2020 01:52:35 PM EDT 75 MG completed [facility] 24 HR metoprolol succinate 50 MG Extende d Release Oral Tablet Metoprolol Succinate Metoprolol Succinate 06/22/2020 01:52:35 PM EDT 75 MG completed [facility] 24 HR metoprolol succinate 50 MG Extende d Release Oral Tablet Metoprolol Succinate Metoprolol Succinate 06/22/2020 01:52:35 PM EDT 75 MG completed [facility] modafinil 100 MG Oral Tablet Modafinil Modafinil 05/18/2017 11:2 1:00 AM EDT 100 MG completed [facility] modafinil 100 MG Oral Tablet Modafinil Modafinil 05/18/2017 11:2 1:00 AM EDT 100 MG completed [facility] modafinil 100 MG Oral Tablet Modafinil Modafinil 05/18/2017 11:2 1:00 AM EDT 100 MG completed [facility] modafinil 100 MG Oral Tablet Modafinil Modafinil 05/18/2017 11:2 1:00 AM EDT 100 MG completed [facility] modafinil 100 MG Oral Tablet Modafinil Modafinil 05/18/2017 11:2 1:00 AM EDT 100 MG completed [facility] Zolpidem tartrate 5 MG Oral Tablet Zolpidem 06/11/2012 10:51:00 AM ED T 5 MG completed [facility] Zolpidem tartrate 5 MG Oral Tablet Zolpidem 06/11/2012 10:51:00 AM ED T 5 MG completed [facility] Zolpidem tartrate 5 MG Oral Tablet Zolpidem 06/11/2012 10:51:00 AM ED T 5 MG completed [facility] Insurance Providers Payer name Policy type / Coverage type Policy ID Covered alliance party ID Covered alliance party's relationship to callaway Policy Callaway Plan Information MOTHER JOSSY UNAVAILABLE Patient UNAVAILABLE AMER PROG TODAYS OPTIONS G [id number] Self [id number] OTHER B [id number] Self [id number] [place] [id number] Self [id number] AMER PROG TODAYS OPTIONS G [id number] Self [id number] OTHER B [id number] Self [id number] OTHER B [id number] Self [id number] OTHER B [id number] Self [id number] WELLCARE [id number] WELLCARE [id number] ANSI-Medicare Part B [id number] ANSI-Medicare Part B [id number] ANSI-Medicare Part B [id number] ANSI-Medicare Part B [id number] ANSI-Medicare Part B [id number] ANSI-Medicare Part B [id number] Todays Options Ppo Commercial [id number] Self [id number] Tod[employer] PFFS Commercial [id number] Self [id number] TODAYS OPTIONS MCR [id number] Patient [id number] [employer]ANS CHOICE PROG VACAA [id number] S [id number] NON VA CARE [id number] S [id number] NON VA CARE [id number] S [id number] TODAYS OPTIONS MCR [id number] Patient [id number] Todays Options Ppo Commercial [id number] Self NON VA CARE [id number] S [id number] TODAYS OPTIONS O [id number] S [id number] TODAYS OPTIONS O UNAVAILABLE S [place] VAILABLE MEDICARE M [id number] S [id number] A WELLCARE [id number] SP [id number] WELLCARE [id number] S [id number] WELLCARE [id number] SP [id number] WELLCARE [id number] SP [id number] WELLCARE [id number] SP [id number] TODAYS OPTIONS [id number] SP [id number] [employer]ETERANS CHOICE PROG VACAA [id number] S [id number] IVORIAN PROGRESSIVE MC [id number] S [id number] WELLCARE [id number] S [id number] ANSI-Medicare Part B [id number] Problems, Conditions, and Diagnoses Code Display Name Description Problem Type Effective Dates Data Source(s) N21.0 Calculus of bladder Bladder stones Problem 03/15/2021 1 2:00:00 AM EDT eCW1 ([facility]) R31.29 Microscopic hematuria Microscopic hematuria Problem 03/15/2021 12:00:00 AM EDT eCW1 ([facility]) N39.0 Urinary tract infectious disease UTI (urinary tract in fection) Problem 03/15/2021 12:00:00 AM EDT eCW1 ([facility]) Z01.818 Pre-procedure evaluation check Preop testing Problem 03/15/2021 12:00:00 AM EDT eCW1 ([facility]) Surgeries/Procedures Procedure Description Date Indications Data Source(s) uro PVR (Post Voiding Residual) Bladder Scan 12:00:00 AM EDT eCW1 ([facility]) Urine culture (procedure) 04/13/2021 12:00:00 AM EDT [facility] Plain chest X-ray (procedure) 04/01/2021 01:59:00 PM E DT [facility] 03/15/2021 12:00:00 AM EDT e CW1 ([facility]) Results ID Date Data Source [id number] 09/28/2021 02:55:00 PM EST [facility] [address] [place] [id number] [phone] NAME SEX PT STATUS ACCOUNT NUMBER DENISSE BISHOP REG REF [id number] ORDERING PHYSICIAN LOCATION MEDICAL RECORD NO. 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 CLINICAL HISTORY: [facility] BCC right ear with h/o bone [...] Reported By Allen Chery MD on 09/28/21 4700 Signed By Allen Chery MD on 09/28/21 916 Date Time CC: Allen Chery M.D.; Jesús Medina MD Techn: SHANELLE Trans Dt/Tm: Trans by: DT Prt Dt/Tm: [phone]: Total DLP = 0.00 mGy-cm Fluoroscopy Time (in secs): Name Value Range Interpretation Code Description Data Diana rce(s) Supporting Document(s) ID Date Data Source [id number] 09/28/2021 01:12:00 PM [facility] Patient Name: DENISSE BISHOP : 1940 Sex: M Pt Unit #: [id number] Location:[facility] Provider: Visit Date/Time: 09/28/21 Primary Insurance: WELLCARE [...] days. Pain can be sharp/shooting at times. Marketing Communications Leader Required: No Accompanied by: Self / Same [...] no drainage out of the ear itself. 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 A reasonable attempt to proofread has been made to minimize errors. Please call if you notice any errors or have any questions. Orders Follow Up: 12/27/21 (Hypertension) Coding Level of Care Code 52484 Est Pt Intermediate Comp Coding comments Coding Comments Additional info for the collet driller: Urgent evaluation of pain around the right ear opening where the patient has had surgery for basal cell cancer Exam Problem Focused Diagnoses Ear Problem H93.90 Additional Codes Intake - Is patient in pain?: Yes (1125F) <Electronically signed by Jesús Medina MD> 2055 Name Value Range Interpretation Code Description Data Diana rce(s) Supporting Document(s) ID Date Data Source [id number] 09/20/2021 11:14:00 AM EST [facility] Name Value Range Interpretation Code Description Data Diana rce(s) Supporting Document(s) Respiratory specimen severe acute respir atory syndrome coronavirus 2 (SARS-CoV-2) RNA Negative (qualifier value) [facility] This lab was ordered by [facility] and reported by . ID Date Data Source [id number] 09/21/2021 07:55:00 AM EST [facility] Name Value Range Interpretation Code Description Data Diana rce(s) Supporting Document(s) SARS-CoV-2 RNA INHOUSE Negative Normal (applies to non-n umeric results) [facility] THIS IS A STATE REPORTABLE COMMUNICABLE DISEASE. Testing was performed using the [employer] COVID-19 MDx Assay. This test has been [...] be found at the following links: Providers: https://www.fda.gov/media/646171/download Patients : https://www.fda.gov/media/383312/download Negative results do not preclude SARS-CoV-2 infection and should not be used as the sole basis for patient management decisions. Negative results must be combined with clinical observations,patient history, and epidemiological information. ID Date Data Source [id number] 06/21/2021 10:16:00 AM EDT [facility] Patient Name: DENISSE BISHOP : 1940 Sex: M Pt Unit #: [id number] Location:[facility] Provider: Visit Date/Time: 06/21/21 Primary Insurance: WELLCARE [...] 1 month ago, was given Prednisone by [place] doctor. Pt's no longer taking Prednisone and no issues w/ legs since. 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 The findings are satisfactory. He was promoted to continue with his lifestyle measures to control his cholesterol. (4) BPH w/o urinary obs/LUTS: Status: Acute Onset Date: 11/03/14 Code(s): N40.0 - Benign prostatic hyperplasia without lower urinary tract symptoms SNOMED Code(s): 756542996 Category: Medical Plan: Patient continues follow-up with his urologist for this problem. (5) Essential hypertension: Status: Acute Onset Date: 03/28/02 Code(s): I10 - Essential (primary) hypertension SNOMED Code(s): 41203697 Category: Medical Plan: Blood pressure is well controlled on the current regimen. Patient was advised to follow a low-salt diet. Additional time was spent with the patient discussing the hypertension plan of care. (6) Multiple sclerosis: Status: Acute Onset Date: 11/03/14 Code(s): G35 - Multiple sclerosis SNOMED Code(s): 84359942 Category: Medical Plan: Patient continues close follow-up with his neurologist in [place]. He had the one episode of leg [...] edited asappropriate. This document was dictated using [employer] speech recognition software. A reasonable attempt to proofread has been made to minimize errors. Please call if you notice any errors or have any questions. Orders Instructions: DASH Eating Plan (GEN) Hypertension (GEN) Follow Up: 6 Months Coding Level of Care Code 09268 Est Pt Extended Comp Coding comments Coding Comments Additional info f or the collet driller: Annual evaluation as well as Medicare annual [...] rce(s) Supporting Document(s) ID Date Data Source [id number] 06/16/2021 12:30:00 PM EDT [facility] @06/16/21 1120: UA W/ MICRO added. RFLXG = UMIC.Method of Collection:: Voided @06/16/21 1120: UA W/ MICRO added. RFLXG = UMIC.Method of Collection:: Voided Name Value Range Interpretation Code Description Data Diana rce(s) Supporting Document(s) Color of Urine [facility] Appearance of Urine CLEAR [facility] pH of Urine by Test strip 6.5 5-8 [facility] Specific gravity of Urine by Refractometry 1.017 1.005-1.030 [facility] Leukocyte esterase [Presence] in Urine by Test strip NEGATIVE Above high normal [facility] @DO MICRO!!!! Nitrite [Presence] in Urine by Test strip NEGATIVE [facility] Protein [Presence] in Urine by Test strip NEGATIVE [facility] Glucose [Mass/volume] in Urine by Automated test strip NEGATIVE NEG ATIVE [facility] Ketones [Presence] in Urine by Test strip NEGATIVE [facility] Urobilinogen [Presence] in Urine 0.2-1 EU/dl [facility] Bilirubin.total [Presence] in Urine by Automated test strip NEGATIVE [facility] Erythrocytes [#/volume] in Urine by Test strip NEGATIVE NEGATIVE [facility] URINE MICROSCOPIC ADDED Microscopic Added [facility] ID Date Data Source [id number] 06/16/2021 12:30:00 PM EDT [facility] @06/16/21 1120: UA W/ MICRO added. RFLXG = UMIC.Method of Collection:: Voided @06/16/21 1120: UA W/ MICRO added. RFLXG = UMIC.Method of Collection:: Voided Name Value Range Interpretation Code Description Data Diana rce(s) Supporting Document(s) Erythrocytes [#/volume] in Urine by Manual count 1-2 /hpf 0-5 [facility] Leukocytes [#/volume] in Urine by Manual count 2-4 /hpf 0-5 [facility] Cells [Type] in Urine sediment by Light microscopy [facility] ID Date Data Source [id number] 06/16/2021 12:01:00 PM EDT [facility] @06/16/21 1120: MANUAL DIFF added. RFLXG = DIFF. @06/16/21 1120: MANUAL DIFF added. RFLXG = DIFF. Name Value Range Interpretation Code Description Data Diana rce(s) Supporting Document(s) Leukocytes [#/volume] in Blood by Automated count 12.4 10*3/uL 4.45-10.71 Above high normal [facility] Erythrocytes [#/volume] in Blood by Automated count 6.01 10*6/uL 4.3- 6.1 N [facility] Hemoglobin [Moles/volume] in Blood 17.8 g/dL 13-18 N [facility] Hematocrit [Volume Fraction] of Blood by Automated count 54.3 % 42-52 Above high normal [facility] Erythrocyte mean corpuscular volume [Ent itic volume] in Cord blood by Automated count 90 fL 80-[address] [facility] ital Erythrocyte mean corpuscular hemoglobin [Entitic mass] by Au tomated count 30 pg 27-31 N [facility] Erythrocyte mean corpuscular hemoglobin concentration [Mass/volume] in Cord blood 33 g/dL 33-[address] [facility] ital Erythrocyte distribution width [Entitic volume] by Automated count 14 % 11-15 N [facility] Platelets [#/volume] in Blood by Automated count 136 10*3/uL 130-472 N [facility] Platelet mean volume [Entitic volume] in Blood 10.4 fL 9.1-13.1 N [facility] Neutrophils/100 leukocytes in Blood by Automated count 53.8 % 41- 77 N [facility] Neutrophils [#/volume] in Blood by Automated count 6.7 U 1.7-7.6 N [facility] Lymphocytes/100 leukocytes in Blood by Automated count 34.1 % 14- 46 N [facility] Lymphocytes [#/volume] in Blood by Automated count 4.2 U 0.6-4.6 N [facility] Monocytes/100 leukocytes in Blood by Automated count 6.7 % 4-12 [facility] Monocytes [#/volume] in Blood by Automated count 0.8 U 0.2-1.2 [facility] Eosinophils/100 leukocytes in Blood by Automated count 3.6 % 0-7 [facility] Eosinophils [#/volume] in Blood by Automated count 0.4 U 0.0-0.5 [facility] Basophils/100 leukocytes in Blood by Automated count 0.7 % 0.4-1 .3 [facility] Basophils [#/volume] in Blood by Automated count 0.1 U 0.0-0.2 [facility] NUCLEATED RED BLOOD CELL 0 % [facility] NUCLEATED RED BLOOD CELL# 0 U [facility] Immature granulocytes [Presence] in Blood by Automated count 0-2 N [facility] Immature granulocytes [#/volume] in Blood by Automated count 0.1 U 0-0.1 N [facility] Manual Differential panel - Blood Manual Diff Added [facility] ID Date Data Source [id number] 06/16/2021 12:13:00 PM EDT [facility] @06/16/21 1120: MANUAL DIFF added. RFLXG = DIFF. @06/16/21 1120: MANUAL DIFF added. RFLXG = DIFF. Name Value Range Interpretation Code Description Data Diana rce(s) Supporting Document(s) Urea nitrogen [Mass/volume] in Serum or Plasma 26 mg/dL 9-23 Above high normal [facility] Sodium [Moles/volume] in Serum or Plasma 141 mmol/L 132-146 [facility] Potassium [Moles/volume] in Serum or Plasma 4.2 mmol/L 3.5-5.5 [facility] Chloride [Moles/volume] in Serum or Plasma 106 mmol/L 99-109 [facility] Carbon dioxide, total [Moles/volume] in Serum or Plasma 32 mmol/ L 20-31 Above high normal [facility] Anion gap in Serum or Plasma 7 mmol/L 8-16 Below low normal [facility] Glucose [Mass/volume] in Serum or Plasma 105 mg/dL 74-106 N [facility] Creatinine 1.2 mg/dL 0.5-1.1 Above high normal [facility] Glomerular filtration rate/1.73 sq M.pre dicted [Volume Rate/Area] in Serum or Plasma 58 ml/min ABOVE 60 [facility] ital Alanine aminotransferase [Enzymatic acti vity/volume] in Serum or Plasma by With P-5'-P 24 U/L 10-[address] [facility] ital Aspartate aminotransferase [Enzymatic ac tivity/volume] in Serum or Plasma by With P-5'-P 13 U/L 0-33 N [facility] pital Alkaline phosphatase [Enzymatic activity/volume] in Serum or Plasma 68 U/L 45-129 N [facility] Calcium [Mass/volume] in Serum or Plasma 9.1 mg/dL 8.5-10.1 [facility] Bilirubin.total [Mass/volume] in Serum or Plasma 0.9 mg/dL 0.3-1.2 [facility] Albumin [Mass/volume] in Serum or Plasma by Bromocresol purple (BCP) dye binding method 3.6 g/dL 3.2-4.[address] [facility] ital Protein [Mass/volume] in Serum or Plasma 6.5 g/dL 5.7-8.2 [facility] ID Date Data Source [id number] 06/16/2021 12:01:00 PM EDT [facility] @06/16/21 1120: MANUAL DIFF added. RFLXG = DIFF. @06/16/21 1120: MANUAL DIFF added. RFLXG = DIFF. Name Value Range Interpretation Code Description Data Diana rce(s) Supporting Document(s) Cells counted [#] 100 [facility] Neutrophils [#/volume] in Blood by Manual count 52 % 41-77 [facility] Lymphocytes [#/volume] in Blood by Manual count 39 % 14-46 [facility] Monocytes [#/volume] in Blood by Manual count 7 % 4-12 [facility] Eosinophils [#/volume] in Blood by Manual count 2 % 0-7 N [facility] Platelets [#/volume] in Blood by Estimate APPEARS NORMAL NORMAL [facility] Morphology [Interpretation] in Blood Narrative APPEARS NORMAL NORMAL [facility] ID Date Data Source [id number] 06/16/2021 12:13:00 PM EDT [facility] @06/16/21 1120: MANUAL DIFF added. RFLXG = DIFF. @06/16/21 1120: MANUAL DIFF added. RFLXG = DIFF. Name Value Range Interpretation Code Description Data Diana rce(s) Supporting Document(s) Triglycerides 134 mg/dL 0-150 N [facility] Cholesterol 195 mg/dL 120-200 N [facility] HDL Cholesterol 67 mg/dL [facility] HDL Less than 40 mg/dL: Major risk for CHDHDL Greater than 59 mg/dL: Low risk for CHD LDL Cholesterol, Calc 102 mg/dL 0-100 Above high normal [facility] ID Date Data Source [id number] 04/16/2021 10:10:00 AM EDT [facility] Name Value Range Interpretation Code Description Data Diana rce(s) Supporting Document(s) SARS-CoV-2 (COVID-19) RNA [Presence] in Respiratory specimen by JANETTE with probe detection Not Detected [facility] This lab was ordered by [facility] and reported by [employer]. ID Date Data Source [id number] 04/14/2021 08:16:00 AM EDT [facility] Name Value Range Interpretation Code Description Data Diana rce(s) Supporting Document(s) Bacteria identified in Urine by Culture [facility] ID Date Data Source [id number] 04/01/2021 03:52:00 PM EDT [facility] [address] [place] [id number] [phone] NAME SEX PT STATUS ACCOUNT NUMBER DENISSE BISHOP REG REF [id number] ORDERING PHYSICIAN LOCATION MEDICAL RECORD NO. Amos Gentile MD RAD [id number] ATTENDING PHYSICIAN DATE OF DATE OF EXAM/TIME Jesús Medina MD 1940 04[birth year]01/211358 TYPE / EXAM Xray Chest 2 view PA/LAT REASON FOR EXAM BLADDER STONES, PREOP CLINICAL HISTORY: [facility] BLADDER STONES, PREOP TECHNIQUE: AP and [...] Trans Dt/Tm: Trans by: DT Prt Dt/Tm: 1266-2130: Total DLP = 0.00 mGy-cm Fluoroscopy Time (in secs): Name Value Range Interpretation Code Description Data Diana rce(s) Supporting Document(s) ID Date Data Source [id number] 04/01/2021 11:26:00 AM EDT [facility] Name Value Range Interpretation Code Description Data Diana rce(s) Supporting Document(s) Leukocytes [#/volume] in Blood by Automated count 8.7 10*3/uL 4.45-10 .71 N [facility] Erythrocytes [#/volume] in Blood by Automated count 5.83 10*6/uL 4.3- 6.1 N [facility] Hemoglobin [Moles/volume] in Blood 17.3 g/dL 13-18 N [facility] Hematocrit [Volume Fraction] of Blood by Automated count 52.8 % 42-52 Above high normal [facility] Erythrocyte mean corpuscular volume [Ent itic volume] in Cord blood by Automated count 91 fL 80-[address] [facility] ital Erythrocyte mean corpuscular hemoglobin [Entitic mass] by Au tomated count 30 pg 27-31 N [facility] Erythrocyte mean corpuscular hemoglobin concentration [Mass/volume] in Cord blood 33 g/dL 33-[address] [facility] ital Erythrocyte distribution width [Entitic volume] by Automated count 14 % 11-15 N [facility] Platelets [#/volume] in Blood by Automated count 174 10*3/uL 130-472 N [facility] Platelet mean volume [Entitic volume] in Blood 10.5 fL 9.1-13.1 N [facility] Neutrophils/100 leukocytes in Blood by Automated count 51.3 % 41- 77 N [facility] Neutrophils [#/volume] in Blood by Automated count 4.5 U 1.7-7.6 N [facility] Lymphocytes/100 leukocytes in Blood by Automated count 33.4 % 14- 46 N [facility] Lymphocytes [#/volume] in Blood by Automated count 2.9 U 0.6-4.6 N [facility] Monocytes/100 leukocytes in Blood by Automated count 9.2 % 4-12 N [facility] Monocytes [#/volume] in Blood by Automated count 0.8 U 0.2-1.2 N [facility] Eosinophils/100 leukocytes in Blood by Automated count 4.6 % 0-7 N [facility] Eosinophils [#/volume] in Blood by Automated count 0.4 U 0.0-0.5 N [facility] Basophils/100 leukocytes in Blood by Automated count 1.0 % 0.4-1 .3 [facility] Basophils [#/volume] in Blood by Automated count 0.1 U 0.0-0.2 N [facility] NUCLEATED RED BLOOD CELL 0 % [facility]ATED RED BLOOD CELL[facility] [address] [facility] Immature granulocytes [Presence] in Blood by Automated count 0-2 N [facility] Immature granulocytes [#/volume] in Blood by Automated count 0.0 U 0-0.1 N [facility] Manual Differential panel - Blood NO [facility] ID Date Data Source [id number] 04/01/2021 12:03:00 PM EDT [facility] Name Value Range Interpretation Code Description Data Diana rce(s) Supporting Document(s) Urea nitrogen [Mass/volume] in Serum or Plasma 22 mg/dL 9-23 N [facility] Sodium [Moles/volume] in Serum or Plasma 143 mmol/L 132-146 [facility] Potassium [Moles/volume] in Serum or Plasma 3.9 mmol/L 3.5-5.5 [facility] Chloride [Moles/volume] in Serum or Plasma 106 mmol/L 99-109 [facility] Carbon dioxide, total [Moles/volume] in Serum or Plasma 31 mmol/L 20 -31 [facility] Anion gap in Serum or Plasma 10 mmol/L 8-16 [facility] Glucose [Mass/volume] in Serum or Plasma 81 mg/dL 74-106 N [facility] Creatinine 1.1 mg/dL 0.5-1.1 [facility] Glomerular filtration rate/1.73 sq M.pre dicted [Volume Rate/Area] in Serum or Plasma Greater Than 60 ABOVE 60 [facility] Calcium [Mass/volume] in Serum or Plasma 8.9 mg/dL 8.5-10.1 [facility] ID Date Data Source [id number] 04/01/2021 09:58:00 AM EDT [facility] Patient Name: DENISSE BISHOP : 1940 Sex: M Pt Unit #: [id number] Location:[facility] Provider: Visit Date/Time: 04/01/21 Primary Insurance: [employer] [...] a cystoscopy w/ Dr. Gentile on 04/21/21. 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 (2) Essential hypertension: Status: Acute Onset Date: 03/28/02 Code(s): I10 - Essential (primary) hypertension SNOMED Code(s): 33415587 Category: Medical Plan: Blood pressure is well controlled on the current regimen. Parenteral labetalol may be used if needed for unacceptably high blood pressure reading. (3) Pure hypercholesterolemia: Status: Acute Onset Date: 11/03/14 Code(s): E78.00 - Pure hypercholesterolemia, unspecified SNOMED Code(s): 146273444 Category: Medical Plan: Neither this condition nor its management will impact the urological procedure (4) BPH w/o urinary obs/LUTS: Status: Acute Onset Date: 11/03/14 Code(s): N40.0 - Benign prostatic hyperplasia without lower urinary tract symptoms SNOMED Code(s): 968043630 Category: Medical Plan: This is being followed and managed by the urologist. (5) IFG (impaired fasting glucose): Status: Acute Onset Date: 12/05/18 Code(s): R73.01 - Impaired fasting glucose SNOMED Code(s): 999425832 Category: Medical Plan: Blood glucose reading today was 81. Renal function is satisfactory. This should not be an issue for the proposed procedure. (6) Multiple sclerosis: Status: Acute Onset Date: 11/03/14 Code(s): G35 - Multiple sclerosis SNOMED Code(s): 69997942 Catego ry: Medical Plan: Patient continues close follow-up with his neurologist in [place]. His overall neurologic status has been stable [...] edited asappropriate. This document was dictated using [employer] speech recognition software. A reasonable attempt to proofread has been made to minimize errors. Please call if you notice any errors or have any questions. Orders Instructions: DASH Eating Plan (GEN) Hypertension (GEN) Follow Up: May (Hypertension) Coding Level of Care Code 83444 Est Pt Extended Comp Coding comments Coding Comments Ad ditional info for the collet driller: Preoperative medical optimization visit with EKG Exam Comprehensive Diagnoses Pre-Operative Examination Z01.818 Essential hypertension I10 Pure hypercholesterolemia E78.00 BPH w/o urinary obs/LUTS N40.0 IFG (impaired fasting glucose) R73.01 Multiple sclerosis G35 CPT Codes ELECTROCARDIOGRAM COMPLETE - 07255 (83687) <Electronically signed by Jesús Medina MD> 04/01/21 1654 Name Value Range Interpretation Code Description Data Diana rce(s) Supporting Document(s) ID Date Data Source [id number] 11/30/2020 10:25:00 AM [facility] Patient Name: DENISSE BISHOP : 1940 Sex: M Pt Unit #: [id number] Location:[facility] Provider: Visit Date/Time: 11/30/20 Primary Insurance: WELLCARE [...] Intake Visit Reasons: Hypertension Nurse Note: N/C Marketing Communications Leader Required: No Accompanied by: Self / Same [...] Screening Screening Have you traveled outside of [facility] or [facility] in the last 14 days.: Yes Has [...] never substance use type: does not use sha/latter day: Synagogue special sha needs: No seatbelt use: always helmet use: No drive intox or ride w/ intox 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 Orders: Orders: CMP 6 Months LIPID PANEL 6 Months CBC W AUTO DIFF 6 Months URINALYSIS 6 Months (3) BPH w/o urinary obs/LUTS: Status: Acute Onset Date: 11/03/14 Code(s): N40.0 - Benign prostatic hyperplasia without lower urinary tract symptoms SNOMED Code(s): 411651952 Category: Tim Medina M.D.: Patient continues follow-up with his urologist for this problem. (4) IFG (impaired fasting glucose): Status: Acute Onset Date: 12/05/18 Code(s): R73.01 - Impaired fasting glucose SNOMED Code(s): 475171052 Category: Tim Medina M.D.: Fasting blood sugar has been requested before the next visit. (5) Multiple sclerosis: Status: Acute Onset Date: 11/03/14 Code(s): G35 - Multiple sclerosis SNOMED Code(s): 11680189 Category: Medical Plan - Jesús Medina M.D.: Patient continues close follow-up with his neurologist in [place]. His overall neurologic status has been stable [...] edited asappropriate. This document was dictated using [employer] speech recognition software. A reasonable attempt to proofread has been made to minimize errors. Please call if you notice any errors or have any questions. Orders Follow Up: 6 Months (Annual/annual) Time spent Total time spent on medical discussion: 30 Coding Level of Care Code 80909 Est Pt Extended Comp Exam Detailed Diagnoses Essential hypertension I10 Pure hypercholesterolemia E78.00 BPH w/o urinary obs/LUTS N40.0 IFG (impaired fasting glucose) R73.01 Multiple sclerosis G35 Time Spent (min) 30 Comment 6 months review, reviewed colonoscopy report, addressed concerns <Electronically signed by Jesús Medina MD> 11/30/20 1756 Name Value Range Interpretation Code Description Data Diana rce(s) Supporting Document(s) ID Date Data Source [id number] 10/07/2020 10:18:00 AM [facility] Name: DENISSE BISHOP : 1940 Age: 80 MR#: [id number] Admit Date: 10/07/20 Provider: Channing Man MD Room #: Consulting Provider: Dictation Date: 10/07/20 Operative Note Operative Report Gen Surg Date of Service Date of service:: 10/07/20 Operative Report Surgeon: Channing Man MD Anesthesiologist(s): Priya Casiano CRNA Anesthesia Type: MAC Pre-Operative Diagnosis: [...] the procedure terminated at 1014. Intraoperative fluids [id number] cc. Patient tolerated the procedure well and was taken to the recovery in stable condition. With an unremarkable colonoscopy very should have repeat colonoscopy for symptoms only. Dictated by: <Electronically signed by Channing Man MD> Channing Man MD 10/07/20 1021 Channing Man MD SIGNATURE DA Report Cosigners: D: ELLE 10/07/20 1018 T: ELLE 10/07/20 1018 CC: Name Value Range Interpretation Code Description Data [facility] rce(s) Supporting Document(s) ID Date Data Source [id number] 10/04/2020 12:00:00 AM EST [facility] Name Value Range Interpretation Code Description Data [facility] Supporting Document(s) 2019-nCoV RNA XXX JANETTE+probe-Imp [facility] This lab was ordered by [facility] and reported by [employer]. ID Date Data Source [id number] 10/02/2020 09:14:00 AM [facility] Name: DENISSE BISHOP : 1940 Age: 80 MR#: [id number] Admit Date: 10/02/20 Provider: Channing Man MD [...] surgery) Nurse Note: preop update colonoscopy 10/07/2020 Marketing Communications Leader Required: No Is patient in pain?: Yes (back pain) Pain scale (1-10): 5 Allergies lisinopril Allergy (Mild, Verified 06/06/19 11:05) cough HIV Testing Offer - ages 13-64 Requirement for HIV testing offer been met?: Not in age range Coronavirus Screening Screening Have you traveled outside of [facility] or [facility] in the last 14 days.: No Has [...] never substance use type: does not use sha/latter day: Synagogue special sha needs: No seatbelt use: always helmet use: No drive intox or ride w/ intox 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 wa ter heater temp set [...] rce(s) Supporting Document(s) ID Date Data Source [id number] 09/29/2020 11:55:00 AM EST [facility] Name Value Range Interpretation Code Description Data Diana rce(s) Supporting Document(s) Leukocytes [#/volume] in Blood by Automated count 9.7 10*3/uL 4.45-10 .71 N [facility] Erythrocytes [#/volume] in Blood by Automated count 5.89 10*6/uL 4.3- 6.1 N [facility] Hemoglobin [Moles/volume] in Blood 17.4 g/dL 13-18 N [facility] Hematocrit [Volume Fraction] of Blood by Automated count 54.7 % 42-52 Above high normal [facility] Erythrocyte mean corpuscular volume [Ent itic volume] in Cord blood by Automated count 92.9 fL 80-[address] [facility] ital Erythrocyte mean corpuscular hemoglobin [Entitic mass] by Automated count 29.5 pg 27-31 N [facility] l Erythrocyte mean corpuscular hemoglobin concentration [Mass/volume] in Cord blood 31.8 g/dL 33-37 Below low normal [facility] Erythrocyte distribution width [Entitic volume] by Automated count 14 % 11-15 N [facility] Platelets [#/volume] in Blood by Automated count 187 10*3/uL 130-472 [facility] Platelet mean volume [Entitic volume] in Blood 10.4 fL 9.1-13.1 N [facility] Neutrophils/100 leukocytes in Blood by Automated count 47.0 % 41- 77 [facility] Neutrophils [#/volume] in Blood by Automated count 4.6 U 1.7-7.6 N [facility] Lymphocytes/100 leukocytes in Blood by Automated count 37.3 % 14- 46 N [facility] Lymphocytes [#/volume] in Blood by Automated count 3.6 U 0.6-4.6 N [facility] Monocytes/100 leukocytes in Blood by Automated count 9.4 % 4-12 [facility] Monocytes [#/volume] in Blood by Automated count 0.9 U 0.2-1.2 N [facility] Eosinophils/100 leukocytes in Blood by Automated count 4.8 % 0-7 N [facility] Eosinophils [#/volume] in Blood by Automated count 0.5 U 0.0-0.5 N [facility] Basophils/100 leukocytes in Blood by Automated count 0.8 % 0.4-1 .3 N [facility] Basophils [#/volume] in Blood by Automated count 0.1 U 0.0-0.2 N [facility] NUCLEATED RED BLOOD CELL 0 % [facility] NUCLEATED RED BLOOD CELL# 0 U [facility] Immature granulocytes [Presence] in Blood by Automated count 0-2 N [facility] Immature granulocytes [#/volume] in Blood by Automated count 0.1 U 0-0.1 N [facility] Manual Differential panel - Blood NO [facility] ID Date Data Source [id number] 09/29/2020 12:12:00 PM [facility] Name Value Range Interpretation Code Description Data Diana rce(s) Supporting Document(s) Urea nitrogen [Mass/volume] in Serum or Plasma 25 mg/dL 9-23 Above high normal [facility] Sodium [Moles/volume] in Serum or Plasma 143 mmol/L 132-146 [facility] Potassium [Moles/volume] in Serum or Plasma 4.2 mmol/L 3.5-5.5 N [facility] Chloride [Moles/volume] in Serum or Plasma 108 mmol/L 99-109 [facility] Carbon dioxide, total [Moles/volume] in Serum or Plasma 33 mmol/ L 20-31 Above high normal [facility] Anion gap in Serum or Plasma 6 mmol/L 8-16 Below low normal [facility] Glucose [Mass/volume] in Serum or Plasma 78 mg/dL 74-106 [facility] Creatinine 1.1 mg/dL 0.5-1.1 [facility] Glomerular filtration rate/1.73 sq M.pre dicted [Volume Rate/Area] in Serum or Plasma Greater Than 60 ABOVE 60 [facility] Calcium [Mass/volume] in Serum or Plasma 9.4 mg/dL 8.5-10.1 [facility] ID Date Data Source [id number] 09/29/2020 10:10:00 AM [facility] Patient Name: DENISSE BISHOP : 1940 Sex: M Pt Unit #: [id number] Location:[facility] Provider: Visit Date/Time: 09/29/20 Primary Insurance: WE[employer] [...] a colonscopy w/ Dr. Man on 10/07/20. 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 Orders: Orders: BMP Today C BC W AUTO DIFF Today (2) Occult blood in stools: Status: Acute Code(s): R19.5 - Other fecal abnormalities SNOMED Code(s): 43247048 Category: Medical Plan - Jesús Medina M.D.: This is being investigated with a colonoscopy. (3) Essential hypertension: Status: Acute Onset Date: 03/28/02 Code(s): I10 - Essential (primary) hypertension SNOMED Code(s): 95471225 Category: Medical Plan - Jesús Medina M.D.: Blood pressure is well controlled on the current regimen. Medications will be continued through theperioperative period. Orders: Orders: BMP Today CBC W AUTO DIFF Today (4) Multiple sclerosis: Status: Acute Onset Date: 11/03/14 Code(s): G35 - Multiple sclerosis SNOMED Code(s): 01401188 Category: Medical Plan - Jesús Medina M.D.: Patient is on Copaxone. The disease is quiet at this time. Additional Comments Additional Comments: Patient came for a preoperative optimization visit. EKG was satisfactory. CBCand BMP results are satisfactory. <Electronically signed by Jesús Medina MD> 09/29/20 1322 Name Value Range Interpretation Code Description Data Diana rce(s) Supporting Document(s) ID Date Data Source [id number] 09/02/2020 09:20:00 AM [facility] Name: DENISSE BISHOP : 1940 Age: 80 MR#: [id number] Admit Date: 09/02/20 Provider: Channing Man MD [...] Visit Reasons: Positive Fecal Occult Blood Screening Marketing Communications Leader Required: No Is patient in pain?: Yes (left neck ) Pain scale (1-10): 5 Allergies lisinopril Allergy (Mild, Verified 06/06/19 11:05) cough HIV Testing Offer - ages 13-64 Requirement for HIV testing offer been met?: Not in age range Coronavirus Screening Screening Have you traveled outside of [facility] or [facility] in the last 14 days.: No Has patient experienced coronavirus symptoms: No [facility] Medical History Benign prostatic hypertrophy without urinary [...] never substance use type: does not use sha/latter day: Synagogue special sha needs: No seatbelt use: always helmet use: No drive intox or ride w/ intox 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 water heater temp set < [...] Never Smoker completed Never S moker [email or web address] ([facility]) 03/22/2021 03:01:00 PM EDT No completed [facility] 03/22/2021 03:01:00 PM EDT No completed No [facility] 03/22/2021 03:01:00 PM EDT Never smoker completed Never s [facility] Smoking 03/22/2021 03:01:00 PM EDT Never smoker completed Never s [facility] 03/22/2021 03:01:00 PM EDT No completed [facility] 03/22/2021 03:01:00 PM EDT No completed [facility] 03/22/2021 03:01:00 PM EDT Never smoker completed Never s [facility] Smoking 03/15/2021 12:00:00 AM EDT Never Smoker completed Never S moker eCW1 ([facility]) Smoking 03/15/2021 12:00:00 AM EDT Never Smoker completed Never S moker eCW1 ([facility]) Smoking 02/15/2021 12:00:00 AM EDT Never Smoker completed Never S moker eCW1 ([facility]) Smoking 02/15/2021 12:00:00 AM EDT Never Smoker completed Never S moker eCW1 ([facility]) 10/06/2020 08:37:00 AM EST No completed No [facility] 10/06/2020 08:37:00 AM EST Never smoker completed Never s [facility] Smoking 10/06/2020 08:37:00 AM EST Never smoker completed Never s [facility] 10/06/2020 08:37:00 AM EST No completed No [facility] 10/06/2020 08:37:00 AM EST Never smoker completed Never s [facility] Smoking 10/06/2020 08:37:00 AM EST Never smoker completed Never s [facility] 09/02/2020 09:39:00 AM EST No completed No [facility] 09/02/2020 09:39:00 AM EST No completed No [facility] 09/02/2020 09:39:00 AM EST Never smoker completed Never s [facility] Smoking 09/02/2020 09:39:00 AM EST Never smoker completed Never s [facility] Smoking 09/01/2020 12:00:00 AM EST Never Smoker completed Never S moker eCW1 ([facility]) Smoking 09/01/2020 12:00:00 AM EST Never Smoker completed Never S moker eCW1 ([facility]) Vital Signs ID Date Data Source UNK Name Value Range Interpretation Code Description Data Source(s) Body weight 179 [lb_av] 179 [lb_av] eCW1 ([facility]) Body height 67 [in_i] 67 [in_i] eCW1 ([facility]) Body mass index (BMI) [Ratio] 28.03 kg/m2 28.03 kg/m2 W1 ([facility]) Heart rate 59 /min 59 /min eCW1 ([facility]) Respiratory rate 17 /min 17 /min eCW1 ([facility]) Body temperature 96.6 [degF] 96.6 [degF] eCW1 ( [facility]) Systolic blood pressure 132 mm[Hg] 132 mm[Hg] e CW1 ([facility]) Diastolic blood pressure 78 mm[Hg] 78 mm[Hg] eCW1 ([facility]) Body height 67 [in_i] 67 [in_i] eCW1 ([facility]) Body mass index (BMI) [Ratio] 28.35 kg/m2 28.35 kg/m2 W1 ([facility]) Heart rate 51 /min 51 /min eCW1 ([facility]) Respiratory rate 17 /min 17 /min eCW1 ([facility]) Body temperature 97.3 [degF] 97.3 [degF] eCW1 ( [facility]) Systolic blood pressure 162 mm[Hg] 162 mm[Hg] e CW1 ([facility]) Body weight 181 [lb_av] 181 [lb_av] eCW1 ([facility]) Diastolic blood pressure 85 mm[Hg] 85 mm[Hg] eCW1 ([facility]) Body weight 181.6 [lb_av] 181.6 [lb_av] eCW1 ([facility]) Body height 67 [in_i] 67 [in_i] eCW1 ([facility]) Body mass index (BMI) [Ratio] 28.44 kg/m2 28.44 kg/m2 eCW1 ([facility]) Heart rate 78 /min 78 /min eCW1 ([facility]) Respiratory rate 18 /min 18 /min eCW1 ([facility]) Body temperature 97.3 [degF] 97.3 [degF] eCW1 ( [facility]) Systolic blood pressure 142 mm[Hg] 142 mm[Hg] e CW1 ([facility]) Diastolic blood pressure 78 mm[Hg] 78 mm[Hg] eCW1 ([facility]) Body weight 174 [lb_av] 174 [lb_av] eCW1 ([facility]) Body height 67 [in_i] 67 [in_i] eCW1 ([facility]) Body mass index (BMI) [Ratio] 27.25 kg/m2 27.25 kg/m2 eCW1 ([facility]) Heart rate 70 /min 70 /min eCW1 ([facility]) Respiratory rate 18 /min 18 /min eCW1 ([facility]) Body temperature 97.6 [degF] 97.6 [degF] eCW1 ( [facility]) Systolic blood pressure 146 mm[Hg] 146 mm[Hg] e CW1 ([facility]) Diastolic blood pressure 72 mm[Hg] 72 mm[Hg] eCW1 ([facility])
== END 2021-09-30 16:37 | disposition left against medical advice (07) ==
LOC: M ED 14:10
DX: Z53.21 Procedure and treatment not carried out due to patient leaving prior to being seen by health care provider (principal)

== ENCOUNTER → 2022-05-25 | Outpatient (REF) | payer MEDICARE ==
[~2022-05-25] MED LIST changes: +TRAM50TA2
[2022-05-25 13:42] LABS: APPEARANCE, URINE CLEAR (CLEAR); BACTERIA, URINE AUTO NEGATIVE (NEGATIVE); BILIRUBIN, URINE AUTO NEGATIVE (NEGATIVE); BLOOD, URINE BLOOD 1+ (NEGATIVE); COLOR, URINE YELLOW (YELLOW); GLUCOSE, URINE (UA) AUTO NEGATIVE (NEGATIVE); KETONE, URINE AUTO NEGATIVE (NEGATIVE); LEUKOCYTE ESTERASE, URINE AUTO NEGATIVE (NEGATIVE); MUCUS, URINE SMALL (NEGATIVE); NITRITE, URINE AUTO NEGATIVE (NEGATIVE); PROTEIN, URINE AUTO NEGATIVE (NEGATIVE); RBC, URINE AUTO 10 /HPF (0-3); SPECIFIC GRAVITY URINE AUTO 1.015 (1.002-1.035); SQUAMOUS EPITHELIAL CELL UR AU 0 /HPF (0-6); WBC, URINE AUTO 3 /HPF (0-3)
== END ==
LOC: M SMT 12:55
PROVIDERS: ATTEND Nurse Practitioner Women's Health
DX: Z87.442 Personal history of urinary calculi (principal)

== ENCOUNTER → 2022-06-08 | Outpatient (CLI) | payer MEDICARE | LOC: M PLAIMG 10:13 | PROVIDERS: ATTEND Nurse Practitioner Women's Health | DX: N21.0 Calculus in bladder (principal); Z87.442 Personal history of urinary calculi ==

== ENCOUNTER → 2022-12-16 | Outpatient (CLI) | payer MEDICARE, OTHER ==
[~2022-12-16] MED LIST changes: +ISOVUE-370 76% 100ML VIAL As Ordered ONE
== END ==
LOC: M RAD 16:38
PROVIDERS: ATTEND Nurse Practitioner Family
DX: R31.9 Hematuria, unspecified (principal)
CPT/HCPCS: 74178; Q9967

== ENCOUNTER → 2024-03-07 | Day surgery (SDC) | payer OTHER, MEDICARE ==
[~2024-03-07] VITALS: Ht 170.2 cm; Wt 76.7 kg
[~2024-03-07] MED LIST changes: +ACETAMINOPHEN 1000MG 100ML IV BAG As Ordered ONE; +AMPY10TA PO; +CALC500C16 PO; +DICL20GE TP; +FINA5TAB2 PO; -ISOVUE-370 76% 100ML VIAL As Ordered ONE; +LIDO1PAD TOP; +LIDOCAINE 2% 100MG/5ML SDV (FOR ANES.) As Ordered ONE; +LOPR1TAB6 PO; +LR 1,000 ML IV SCH; +MORPHINE 2 MG/ML 1ML VIAL IV PRN; +ONDANSETRON 4MG 2ML VIAL As Ordered ONE; +ONDANSETRON 4MG 2ML VIAL IV PRN; +PERCOCET 5MG/325MG TAB PO PRN; +RHOP0.02 OU; +TECF240C PO; +VITA-176 PO; +ePHEDrine SULFATE 25 MG/5 ML(5MG/ML) SYRINGE As Ordered ONE; +fentaNYL 100 MCG/2 ML INJECTION As Ordered ONE; +fentaNYL 100 MCG/2 ML INJECTION IV PRN; +oxyCODONE 5MG TAB PO PRN; +propofoL 200 MG/20 ML VIAL As Ordered ONE
[2024-03-07] MEDS: ceFAZolin SOD 2 GM in IV 1 EA IV ONE (13:11)
[2024-03-07] MEDS: ISOVUE-300 61% 100ML VIAL As Ordered ONE (14:20)
[2024-03-07 16:07] VITALS: BP 161/74; TEMP 97.4; O2SAT 96
[2024-03-15 19:09] LABS: CA Oxalate Dihy 70 % (.); Ca Ox Monohydrate 25 % (.); Size 6x3 mm (.)
== END | disposition home or self-care (01) ==
LOC: M SDC 10:49
PROVIDERS: ATTEND Urology
DX: N13.2 Hydronephrosis with renal and ureteral calculous obstruction (principal); Q62.5 Duplication of ureter; N40.0 Benign prostatic hyperplasia without lower urinary tract symptoms; K21.9 Gastro-esophageal reflux disease without esophagitis; I10 Essential (primary) hypertension; E78.00 Pure hypercholesterolemia, unspecified; G35 Multiple sclerosis; Z85.828 Personal history of other malignant neoplasm of skin; Z79.899 Other long term (current) drug therapy; Z79.82 Long term (current) use of aspirin; Z92.3 Personal history of irradiation; Z88.8 Allergy status to other drugs, medicaments and biological substances
CPT/HCPCS: 52356; 76000; 82365; C2617; J0131; J0690; J1100; J2405; J3010; Q9967

== ENCOUNTER → 2024-09-23 | Outpatient (CLI) | payer OTHER, MEDICARE ==
[~2024-09-23] MED LIST changes: -ACETAMINOPHEN 1000MG 100ML IV BAG As Ordered ONE; +GABA-1172 PO; -GABA-282 PO; -LIDOCAINE 2% 100MG/5ML SDV (FOR ANES.) As Ordered ONE; -LR 1,000 ML IV SCH; -MORPHINE 2 MG/ML 1ML VIAL IV PRN; -ONDANSETRON 4MG 2ML VIAL As Ordered ONE; -ONDANSETRON 4MG 2ML VIAL IV PRN; -PERCOCET 5MG/325MG TAB PO PRN; -ePHEDrine SULFATE 25 MG/5 ML(5MG/ML) SYRINGE As Ordered ONE; -fentaNYL 100 MCG/2 ML INJECTION As Ordered ONE; -fentaNYL 100 MCG/2 ML INJECTION IV PRN; -oxyCODONE 5MG TAB PO PRN; -propofoL 200 MG/20 ML VIAL As Ordered ONE
== END ==
LOC: M PLAIMG 13:02
PROVIDERS: ATTEND Urology
DX: N20.0 Calculus of kidney (principal)

== ENCOUNTER → 2024-11-29 | Outpatient (REF) | payer OTHER, MEDICARE | LOC: M SFHCDERM 17:00 | PROVIDERS: ATTEND Physician Assistant | DX: H60.11 Cellulitis of right external ear (principal) ==

== ENCOUNTER → 2025-01-10 | Outpatient (REF) | payer MEDICARE, OTHER | LOC: M SFHCDERM 18:06 | PROVIDERS: ATTEND Physician Assistant | DX: L82.1 Other seborrheic keratosis (principal) ==

== ENCOUNTER → 2025-04-29 | Outpatient (CLI) | payer OTHER, MEDICARE ==
[~2025-04-29] MED LIST changes: -AMBI10TA PO; +CHOL25TA15 PO; -FLOM0.4C39 PO; +TAMS-18 PO; -VITA-176 PO; +ZOLP-533 PO
== END ==
LOC: M PLARAD 14:03
PROVIDERS: ATTEND Nurse Practitioner Family
DX: D48.9 Neoplasm of uncertain behavior, unspecified (principal)
CPT/HCPCS: 78816; A9552

== ENCOUNTER → 2025-09-29 | Outpatient (CLI) | payer OTHER, MEDICARE | LOC: M PLAIMG 11:34 | PROVIDERS: ATTEND Urology | DX: N20.0 Calculus of kidney (principal) ==